=== PATIENT | female | born 1930 | race Caucasian/White ===

== ENCOUNTER 2018-10-16 12:53 | Observation (INO) | payer BC ==
[2018-10-16 13:35] VITALS: BMI 25.6
--- NOTE | 2018-10-16 15:13 | PDOC ---
History of Present Illness - General Chief Complaint: Injury Stated Complaint: FALL Time Seen by Provider: 10/16/18 13:56 - History of Present Illness Initial Comments: 10/16/18 18:28 The patient is an 87 year old female with a PMH of CAD s/p stent, hld, htn, dm, sarcoidosis, left hip fx, osteoarthritis who presents to the ER s/p syncopal episode at 11:45AM today. Patient states the prior to the sycopal episode she began to experience darkening of her vision. Patient states she hit her head against a doorframe on her way down. She admits to loss of consciousness for a few seconds but the head strike woke her up. Patient notes she also hit her R elbow on the way down, but denies any pain now. Patient admits to mild head pain. Patient notes she had chest pain that was sharp and substernal yesterday for a few seconds but denies any chest pain or palpiations prior to the syncopal episode. Patient reports she is unsteady when she walks at baseline and uses her walker intermittently. Patient states she was able to ambulate after the fall, called her son who subsequently called EMS to bring her to the ER. Currently taking aspirin but denies using any other blood thinners. Denies recent illnesses. The patient denies chest pain, shortness of breath, headache and dizziness. Denies fever, chills, nausea, vomit, diarrhea and constipation. Denies dysuria, frequency, urgency and hematuria. Allergies: NKA Past surgical history: None reported Social history: No reported alcohol, drug or cigarette use. Past History - Past Medical History Allergies/Adverse Reactions: Allergies Allergy/AdvReac Type Severity Reaction Status Date / Time codeine AdvReac Verified 10/16/18 13:22 Home Medications: Ambulatory Orders Alprazolam 0.25 mg PO PRN 10/16/18 Aspirin [Aspirin EC] 81 mg PO DAILY 10/16/18 Atorvastatin Calcium 10 mg PO WEEKLY 10/16/18 Vahe/D3/Mag11/Zinc/Field Hauler/Harpreet/Bor [Caltrate 600+D Plus Tablet] 1 each PO DAILY 04/28 Cholecalciferol (Vitamin D3) [D-2000] 2,000 unit PO DAILY 10/16/18 Diltiazem Cd [Cardizem Cd -] 120 mg PO DAILY 10/16/18 Losartan Potassium 25 mg PO DAILY 10/16/18 Meloxicam 7.5 mg PO DAILY 10/16/18 Metoprolol Succinate 25 mg PO DAILY 10/16/18 Pantoprazole Sodium 40 mg PO PRN 10/16/18 Vitamin B Complex [B Complex] 1 tab PO DAILY 10/16/18 COPD: No HTN: Yes Hypercholesterolemia: Yes - Surgical History Appendectomy: Yes Cardiac Surgery: Yes - Immunization History Immunization Up to Date: Yes - Suicide/Smoking/Psychosocial Hx Smoking History: Never smoked Hx Alcohol Use: No Drug/Substance Use Hx: No Review of Systems - Review of Systems Comments:: 10/16/18 18:30 GENERAL/CONSTITUTIONAL: No fever or chills. No weakness. +fall HEAD, EYES, EARS, NOSE AND THROAT: No change in vision. No ear pain or discharge. No sore throat. GASTROINTESTINAL: No nausea, vomiting, diarrhea or constipation. GENITOURINARY: No dysuria, frequency, or change in urination. CARDIOVASCULAR: +chest pain, no shortness of breath. RESPIRATORY: No cough, wheezing, or hemoptysis. MUSCULOSKELETAL: No joint or muscle swelling or pain. No neck or back pain. SKIN: No rash NEUROLOGIC: No vertigo, or change in strength/sensation. +head strike, +LOC ENDOCRINE: No increased thirst. No abnormal weight change. HEMATOLOGIC/LYMPHATIC: No anemia, easy bleeding, or history of blood clots. ALLERGIC/IMMUNOLOGIC: No hives or skin allergy. *Physical Exam - Vital Signs Last Vital Signs Temp Pulse Resp BP Pulse Ox 98.7 F 66 18 155/54 L 97 10/16/18 13:31 10/16/18 13:31 10/16/18 13:31 10/16/18 13:31 10/16/18 13:31 - Physical Exam Comments: 10/16/18 18:31 GENERAL: Awake, alert, and fully oriented, in no acute distress HEAD: No signs of trauma EYES: PERRLA, EOMI, sclera anicteric, conjunctiva clear ENT: Oropharynx clear without exudates. Moist mucosa NECK: Normal ROM, supple, no lymphadenopathy, JVD, or masses LUNGS: Breath sounds equal, clear to auscultation bilaterally. No wheezes, and no crackles HEART: Regular rate and rhythm, normal S1 and S2, no murmurs, rubs or gallops ABDOMEN: Soft, nontender, normoactive bowel sounds. No guarding, no rebound. No masses EXTREMITIES: Normal range of motion, no edema. No cords, erythema, or tenderness BACK: No midline spinal tenderness in cervical/thoracic/lumbar region NEUROLOGICAL: Normal speech, cranial nerves intact, equal strength and sensation b/l SKIN: Warm, Dry, normal turgor, no rashes or lesions noted. Moderate Sedation - Procedure Monitoring Vital Signs: Procedure Monitoring Vital Signs Temperature 98.7 F 10/16/18 13:31 Pulse Rate 66 10/16/18 13:31 Respiratory Rate 18 10/16/18 13:31 Blood Pressure 155/54 L 10/16/18 13:31 O2 Sat by Pulse Oximetry (%) 97 10/16/18 13:31 Heart Score/ECG Review #1 10/16/18 18:31 EKG read and interpreted by me. NSR, rate 63. LAD. LBBB. When compared to EKG from 12/04/2009, no sig change ED Treatment Course - LABORATORY CBC & Chemistry Diagram: 10/16/18 15:16 10/16/18 15:16 - RADIOLOGY Radiology Studies Ordered: Category Date Time Status CERVICAL SPINE CT W/O CONTR [CT] Stat CT Scan 10/16/18 15:[address] WITHOUT CONTRAST [CT] Stat CT Scan 10/16/18 15:00 Ordered CHEST X-RAY PORTABLE* [RAD] Stat Radiology 10/16/18 15:02 Ordered PELVIS [RAD] Stat Radiology 10/16/18 15:04 Ordered Medical Decision Making - Medical Decision Making 10/16/18 17:48 87yo F with MMP including CAD presents to the ED with syncopal episode. Trauma w /u thus far neg. Labs including trop wnl. EKG unchanged. Concern for cardiac arrhythmia, pt admitted to tele obs for cardiac monitoring. *DC/Admit/Observation/Transfer Diagnosis at time of Disposition: Syncope and collapse, Head injury, Fall - Discharge Dispostion Condition at time of disposition: Stable Decision to Admit order: Yes - Referrals - Patient Instructions - Post Discharge Activity - Attestations Physician Attestion: 10/16/18 18:36 I, Dr. Roxana Enriquez MD, attest that this document has been prepared under my direction and personally reviewed by me in its entirety. I further attest, that it accurately reflects all work, treatment, procedures and medical decision -making performed by me.
[2018-10-16 15:33] LABS: HEMATOCRIT 37.9 % (32.4-45.2); HEMOGLOBIN 13.4 GM/dL (10.7-15.3); MCH 32.3 pg (25.7-33.7); MCHC 35.5 g/dl (32.0-36.0); MEAN CELL VOLUME 91.1 fl (80-96); MEAN PLT VOLUME 8.6 fl (7.5-11.1); PLATELET COUNT 122 K/MM3 (134-434); RBC 4.16 M/mm3 (3.60-5.2); RDW 13.3 % (11.6-15.6); WHITE BLOOD COUNT 6.8 K/mm3 (4.0-10.0)
[2018-10-16 16:11] LABS: ALBUMIN 3.9 g/dl (3.4-5.0); ALK PHOS 101 U/L (45-117); ANION GAP 4 MMOL/L (8-16); BILIRUBIN,TOTAL 0.7 mg/dL (0.2-1); BLOOD UREA NITROGEN 23 mg/dL (7-18); CHLORIDE 111 mmol/L (98-107); CO2 28 mmol/L (21-32); GLUCOSE,RANDOM 97 mg/dL (74-106); POTASSIUM 4.5 mmol/L (3.5-5.1); SGOT/AST 18 U/L (15-37); SGPT/ALT 18 U/L (13-61); SODIUM 143 mmol/L (136-145); TOT PROT 6.9 g/dl (6.4-8.2)
[2018-10-16 16:45] LABS: INR 1.12 (0.83-1.09); PROTHROMBIN TIME (PATIENT) 13.2 SEC (9.7-13.0)
[2018-10-16 16:48] LABS: ACTIVATED PTT 28.2 SECONDS (25.2-36.5)
[2018-10-16 17:16] LABS: URINE APPEARANCE CLEAR; URINE BILIRUBIN NEGATIVE (<2.0 mg/dL); URINE COLOR STRAW; URINE GLUCOSE (UA) NEGATIVE (NEGATIVE); URINE KETONE NEGATIVE (NEGATIVE); URINE LEUK ESTERASE NEGATIVE (NEGATIVE); URINE NITRITE NEGATIVE (NEGATIVE); URINE PROTEIN NEGATIVE (NEGATIVE); URINE UROBILINOGEN NEGATIVE mg/dL (0.2-1.0)
[2018-10-16] MEDS ORDERED: SODIUM CHLORIDE 1,000 ML IV SCH (18:00)
--- NOTE | 2018-10-16 18:21 | HP ---
CHIEF COMPLAINT: syncope PCP:dr. carranza, cardio: dr. olivo HISTORY OF PRESENT ILLNESS: 87 y/o female with PMH of HTN, HLD, CAD (s/p stent of LAD in 2012), sarcoid presents to the ED after almost passing out at home. Patient states she was going to put something away in the kitchen and she felt as if she was going to pass out so she held on to the chair while banging her forehead on the side- she did not lose consciousness and she was able to pick herself up a few minutes later to call her son who called EMS. of note, patient had a similar episode around 6 months ago where was going to take out the garbage felt as if she was going to pass out but didnt. Patient states she suffers from chronic lightheadedness and there are times where she needs to hold on to something to prevent her from falling. she denies any recent illnesses however she states that two nights ago she had a twing of chest pain that lasted 2 seconds and has not had any since then. she said her last stress test was about 3-4 years ago and cannot recall the last time she had an echo ER course was notable for: (1)vitals wnl, labs wnl (2)ekg: LBB (not new) qtc 427 (3) Recent Travel: denies PAST MEDICAL HISTORY: sere above PAST SURGICAL HISTORY: stent; hip replacement 17 years ago, left lower lobe resection for sarcoid 1985 Social History: Smoking:denies Alcohol:social Drugs: denies Family History:noncontributory Allergies codeine Adverse Reaction (Verified 10/16/18 13:22) HOME MEDICATIONS: Home Medications Medication Instructions Recorded Alprazolam 0.25 mg PO PRN 10/16/18 Aspirin [Aspirin EC] 81 mg PO DAILY 10/16/18 Atorvastatin Calcium 10 mg PO WEEKLY 10/16/18 Vahe/D3/Mag11/Zinc/Licensed Massage Practitioner/Harpreet/Bor 1 each PO DAILY 10/16/18 [Caltrate 600+D Plus Tablet] Cholecalciferol (Vitamin D3) 2,000 unit PO DAILY 10/16/18 [D-2000] Diltiazem Cd [Cardizem Cd -] 120 mg PO DAILY 10/16/18 Losartan Potassium 25 mg PO DAILY 10/16/18 Meloxicam 7.5 mg PO DAILY 10/16/18 Metoprolol Succinate 25 mg PO DAILY 10/16/18 Pantoprazole Sodium 40 mg PO PRN 10/16/18 Vitamin B Complex [B Complex] 1 tab PO DAILY 10/16/18 REVIEW OF SYSTEMS CONSTITUTIONAL: Absent: fever, chills, diaphoresis, generalized weakness, malaise, loss of appetite, weight change HEENT: Absent: rhinorrhea, nasal congestion, throat pain, throat swelling, difficulty swallowing, mouth swelling, ear pain, eye pain, visual changes CARDIOVASCULAR: Present: lightheadedness,Absent: chest pain, syncope, palpitations, irregular heart rate, peripheral edema RESPIRATORY: Absent: cough, shortness of breath, dyspnea with exertion, orthopnea, wheezing, stridor, hemoptysis GASTROINTESTINAL: Absent: abdominal pain, abdominal distension, nausea, vomiting, diarrhea, constipation, melena, hematochezia GENITOURINARY: Absent: dysuria, frequency, urgency, hesitancy, hematuria, flank pain, genital pain MUSCULOSKELETAL: Absent: myalgia, arthralgia, joint swelling, back pain, neck pain SKIN: Absent: rash, itching, pallor HEMATOLOGIC/IMMUNOLOGIC: Absent: easy bleeding, easy bruising, lymphadenopathy, frequent infections ENDOCRINE: Absent: unexplained weight gain, unexplained weight loss, heat intolerance, cold intolerance NEUROLOGIC: Absent: headache, focal weakness or paresthesias, dizziness, unsteady gait, seizure, mental status changes, bladder or bowel incontinence PSYCHIATRIC: Absent: anxiety, depression, suicidal or homicidal ideation, hallucinations. PHYSICAL EXAMINATION Vital Signs - 24 hr 10/16/18 13:31 Temperature 98.7 F Pulse Rate 66 Respiratory 18 Rate Blood Pressure 155/54 L O2 Sat by Pulse 97 Oximetry (%) GENERAL: Awake, alert, and fully oriented, in no acute distress. EYES: EOMI; PEERLA; no scleral icterus NECK: no JVD; no lymphadenopathy LUNGS: CTA B/L; no rales, rhonchi or wheezig HEART: Regular rate and rhythm, normal S1 and S2 without murmur, rub or gallop. ABDOMEN: soft; non-tender; non-distended +BS in all 4 quadrants MUSCULOSKELETAL: Normal range of motion at all joints. No bony deformities or tenderness. No CVA tenderness. EXTREMITIES: warm; well-perfused; no clubbing/cyanosis or edema NEUROLOGICAL: Cranial nerves II-XII intact. Normal speech. sensation intact B/L ; 4/5 strength B/L UE; 3/5 LLE; 4/5 RLE PSYCHIATRIC: Cooperative. Good eye contact. Appropriate mood and affect. SKIN: Warm, dry, normal turgor, no rashes or lesions noted, normal capillary refill. Laboratory Results - last 24 hr 10/16/18 10/16/18 10/16/18 15:16 15:16 15:16 WBC 6.8 RBC 4.16 Hgb 13.4 Hct 37.9 MCV 91.1 MCH 32.3 MCHC 35.5 RDW 13.3 Plt Count 122 L MPV 8.6 Absolute Neuts (auto) 1.7 Neutrophils % No Result Required. Lymphocytes % No Result Required. Nucleated RBC % 0 PT with INR 13.20 H INR 1.12 H PTT (Actin FS) 28.2 Sodium 143 Potassium 4.5 Chloride 111 H Carbon Dioxide 28 Anion Gap 4 L BUN 23 H Creatinine 1.0 Creat Clearance w eGFR 52.69 Random Glucose 97 Calcium 9.0 Magnesium Total Bilirubin 0.7 AST 18 ALT 18 Alkaline Phosphatase 101 Troponin I Total Protein 6.9 Albumin 3.9 Urine Color Urine Appearance Urine pH Ur Specific [place] Urine Protein Urine Glucose (UA) Urine Ketones Urine Blood Urine Nitrite Urine Bilirubin Urine Urobilinogen Ur Leukocyte Esterase 10/16/18 10/16/18 15:16 15:40 WBC RBC Hgb Hct MCV MCH MCHC RDW Plt Count MPV Absolute Neuts (auto) Neutrophils % Lymphocytes % Nucleated RBC % PT with INR INR PTT (Actin FS) Sodium Potassium Chloride Carbon Dioxide Anion Gap BUN Creatinine Creat Clearance w eGFR Random Glucose Calcium Magnesium 2.0 Total Bilirubin AST ALT Alkaline Phosphatase Troponin I 0.02 Total Protein Albumin Urine Color Straw Urine Appearance Clear Urine pH 5.0 Ur Specific [place] 1.005 L Urine Protein Negative Urine Glucose (UA) Negative Urine Ketones Negative Urine Blood 1+ H Urine Nitrite Negative Urine Bilirubin Negative Urine Urobilinogen Negative Ur Leukocyte Esterase Negative ASSESSMENT/PLAN: 87 y/o female with PMH of HTN, HLD, CAD (s/p stent in 2012), sarcoid, presented to the ED after having a pre-syncopal episode at home #Pre-syncope likely 2/2 dehydration/ volume depletion -head CT negative -orthostatic negative -tele monitoring -NS @75mls/hr -echo can be do as outpatient -monitor vitals/hemodynamics #HTN -c/w home meds: cozaar 25 daily metoprolol succinate 25 daily cardizem 120 daily *if BP becomes marginal will hold #CAD -c/w ASA 81 daily #HLD -patient takes lipitor 10mg three times per week F/E/N NS @75mls/hr monitor electrolytes sodium-controlled diet DVT PPX: lovenox dispo: tele-obs Problem List - Problem (1) HTN (hypertension) Code(s): I10 - ESSENTIAL (PRIMARY) HYPERTENSION (2) CAD (coronary artery disease) Code(s): I25.10 - ATHSCL HEART DISEASE OF [place] CORONARY ARTERY W/O ANG PCTRS (3) HLD (hyperlipidemia) Code(s): E78.5 - HYPERLIPIDEMIA, UNSPECIFIED (4) Pre-syncope Code(s): R55 - SYNCOPE AND COLLAPSE Visit type - Emergency Visit Emergency Visit: Yes Care time: The patient presented to the Emergency Department on the above date and was hospitalized for further evaluation of their emergent condition. - New Patient This patient is new to me today: Yes Date on this admission: 10/16/18 - Critical Care Critical Care patient: No
[2018-10-16] MEDS ORDERED: ENOXAPARIN NA (PORCINE) 40 MG/0.4 ML DISP.SYRIN SQ ONE ×2 (18:35→18:42)
[2018-10-16] MEDS: ENOXAPARIN NA (PORCINE) 40 MG/0.4 ML DISP.SYRIN SQ SCH (18:42)
--- NOTE | 2018-10-16 18:43 | PN ---
Teaching Attending Note Name of Resident: Shaneka De La Rosa ATTENDING PHYSICIAN STATEMENT I saw and evaluated the patient. I reviewed the resident's note and discussed the case with the resident. I agree with the resident's findings and plan as documented. SUBJECTIVE: CC: near syncope HPI : 87 y/o lady with h/o CAD, s/p MS, s/p PCI, HLP, anxiety, HTN, and sarcoidosis,s/p LLL resection , who presented with a near syncopal episode. at home while walking, she felt light headed and like she was going to faint and she held onto objexts and brought herself down and sat on the steps. during the whole process she banged her head against an object in her kitchen. she does not think she lost consciousness. She denies any CP, SOB, palpitations, sweating, or ARREOLA before or after the incident. she reports similar episode 2 months ago, while standing in her garage. she reports poor fluid intake and drinks only when she has to take her medications. 2 nights ago, she had sharp pain in L chest that lasted only 2 seconds and felt like a pin in her chest. she reports feeling light headed occasionally, especially when she gets up form sitting position. OBJECTIVE: NAD , AAOx3. no facial droop. EOMI, round equal pupils, reactive to light. dry lips. CV: RRR, no MRG, no carotid bruits Lungs: L base course breath sounds , to a lesser extent on R base too EXT: no edema or erythema, DP 2+ . no fungal infection among toes. callus on plantar surface of the 1st metatarsal head on each foot Neuro: no facial droop. EOMI, round equal pupils, reactive to light. tongue at mid line. Nl facialsensation . strength 5/5 in upper and lower extrenities proximally and distally. sensation to light touch NL. Imaging: CT head, C spine report reviewed. pelvis xray image reviewed. no fx sen. report to follow EKG: LBBB, L axis . no ST , TW changes ASSESSMENT AND PLAN: 87 y/o lady with h/o CAD, s/p MS, s/p PCI, HLP,anxiety, HTN, and sarcoidosis,s /p LLL resection , who presented with a near syncopal episode 1- Near syncope: likely due to orthostatic hypotension form volume depletion . ( from hx and elevated BUN/Cr). can't r/o arrhythmias completely. but do not suspect stroke/TIA, or MS. seizure is not suspected. - start IVF - carotid US - tele - might need prolonged cardiac monitoring after dc if we can't find an etiology - need a non urgent Echo, can be done as out pt. She follows with Dr. Baptiste at [facility] 2- HTN: cont metorpolol, cardizem and losartan 3- H/o CAD: cont ASA, statin, BB, ARB 4- DVT px PT eval
[2018-10-16 18:44] LABS: EPI CELLS RARE /HPF (FEW); URINE HYALINE CAST 2 /lpf
[2018-10-16 19:41] LABS: ANISOCYTOSIS 0; MACROCYTOSIS 0; PLATELET ESTIMATE DECREASED
[2018-10-16] MEDS ORDERED: ATORVASTATIN CA 10 MG TABLET (FP) PO SCH (22:00)
[2018-10-16] MEDS ORDERED: ATORVASTATIN CA 10 MG TABLET (FP) ONE (22:25)
[2018-10-17 07:31] LABS: ALBUMIN 3.2 g/dl (3.4-5.0); ALK PHOS 92 U/L (45-117); ANION GAP 5 MMOL/L (8-16); BILIRUBIN,TOTAL 0.9 mg/dL (0.2-1); BLOOD UREA NITROGEN 22 mg/dL (7-18); CALCIUM 8.7 mg/dL (8.5-10.1); CHLORIDE 110 mmol/L (98-107); CO2 25 mmol/L (21-32); CREATININE 0.9 mg/dL (0.55-1.3); GLUCOSE,RANDOM 104 mg/dL (74-106); MAGNESIUM 2.1 mg/dL (1.8-2.4); PHOSPHOROUS 3.1 mg/dL (2.5-4.9); POTASSIUM 4.1 mmol/L (3.5-5.1); SGOT/AST 36 U/L (15-37); SGPT/ALT 16 U/L (13-61); SODIUM 141 mmol/L (136-145); TOT PROT 6.1 g/dl (6.4-8.2)
[2018-10-17] MEDS ORDERED: metoPROLOL SUCCINATE 25 MG TAB.SR.24H (FP) PO SCH (10:00)
[2018-10-17] MEDS ORDERED: VITAMIN B COMPLEX W/C COMBO TABLET (FP) PO SCH (10:00)
[2018-10-17] MEDS ORDERED: ASPIRIN COATED 81 MG TABLET.EC PO SCH (10:00)
[2018-10-17] MEDS ORDERED: LOSARTAN POTASSIUM 25 MG TABLET PO SCH (10:00)
[2018-10-17] MEDS ORDERED: PATIENT'S OWN MEDICATION (NON-FORMULARY) (Meloxicam [Meloxicam] 7.5 MG) PO SCH (10:00)
[2018-10-17] MEDS: ENOXAPARIN NA (PORCINE) 40 MG/0.4 ML DISP.SYRIN SQ SCH (10:01)
--- NOTE | 2018-10-17 10:28 | DS ---
Physical Examination Vital Signs: Vital Signs Temperature 98.3 F 10/17/18 10:27 Pulse Rate 62 10/17/18 10:27 Respiratory Rate 18 10/17/18 10:27 Blood Pressure 128/57 L 10/17/18 10:27 O2 Sat by Pulse Oximetry (%) 100 10/17/18 10:27 Labs: CBC, BMP 10/17/18 06:30 10/17/18 06:30 Discharge Summary Reason For Visit: SYNCOPE AND COLLAPSE Current Active Problems Pre-syncope (Acute) Condition: Improved - Instructions Diet, Activity, Other Instructions: you were admitted for near syncope. You were dehydrated and needed so me fluids please make sure you drink plenty of fluids please follow up with your compensation manager as you will need repeat Echo of your heart and might need prolonged cardiac monitoring follow with your primary care doctor in 1 week Referrals: Yovani Baptiste MD [Non Staff, Medical] - Disposition: HOME - Home Medications Comprehensive Discharge Medication List: Ambulatory Orders Alprazolam 0.25 mg PO PRN 10/16/18 Aspirin [Aspirin EC] 81 mg PO DAILY 10/16/18 Atorvastatin Calcium 10 mg PO WEEKLY 10/16/18 Vahe/D3/Mag11/Zinc/Director Of Leadership Development/Harpreet/Bor [Caltrate 600+D Plus Tablet] 1 each PO DAILY 04/28 Cholecalciferol (Vitamin D3) [D3-2000] 2,000 unit PO DAILY 10/16/18 Diltiazem Cd [Cardizem Cd -] 120 mg PO DAILY 10/16/18 Losartan Potassium 25 mg PO DAILY 10/16/18 Meloxicam 7.5 mg PO DAILY 10/16/18 Metoprolol Succinate 25 mg PO DAILY 10/16/18 Pantoprazole Sodium 40 mg PO PRN 10/16/18 Vitamin B Complex [B Complex] 1 tab PO DAILY 10/16/18
--- NOTE | 2018-10-17 11:51 | EKG ---
Test Reason : Blood Pressure : / mmHG Vent. Rate : 068 BPM Atrial Rate : 068 BPM P-R Int : 202 ms QRS Dur : 120 ms QT Int : 410 ms P-R-T Axes : 060 -32 076 degrees QTc Int : 435 ms NORMAL SINUS RHYTHM LEFT AXIS DEVIATION INFERIOR INFARCT , AGE UNDETERMINED ANTEROSEPTAL INFARCT , AGE UNDETERMINED ABNORMAL ECG WHEN COMPARED WITH ECG OF 04-DEC-2009 12:29, LEFT BUNDLE BRANCH BLOCK IS NO LONGER PRESENT ANTEROSEPTAL INFARCT IS NOW PRESENT INFERIOR INFARCT IS NOW PRESENT Confirmed by CRISTOBAL MOHAN MD ([id number]) on 10/17/2018 11:50:48 AM Referred By: Confirmed By:CRISTOBAL MOHAN MD
[2018-10-17 13:45] VITALS: BP 134/55; PULSE 78; TEMP 98
--- NOTE | 2018-10-17 16:48 | PN ---
Progress Note (short form) - Note Progress Note: Subjective: no pain , no ARREOLA , no fever or chills Objective: Vital Signs: Last Vital Signs Temp Pulse Resp BP Pulse Ox 98.0 F 78 18 134/55 L 99 10/17/18 13:44 10/17/18 13:44 10/17/18 13:44 10/17/18 13:44 10/17/18 13:44 Laboratory Results - last 24 hr 10/16/18 10/16/18 10/16/18 15:16 15:16 15:16 WBC 6.8 Corrected WBC (auto) RBC 4.16 Hgb 13.4 Hct 37.9 MCV 91.1 MCH 32.3 MCHC 35.5 RDW 13.3 Plt Count 122 L MPV 8.6 Absolute Neuts (auto) 1.7 Neutrophils % No Result Required. Neutrophils % (Manual) 85.9 H Band Neutrophils % 0.0 Lymphocytes % No Result Required. Lymphocytes % (Manual) 5.0 L Monocytes % Monocytes % (Manual) 5 Eosinophils % Eosinophils % (Manual) 0.0 Basophils % Basophils % (Manual) 0.0 Myelocytes % (Man) 1 Promyelocytes % (Man) 0 Blast Cells % (Manual) 0 Nucleated RBC % 0 Metamyelocytes 0 Hypochromia 0 Platelet Estimate Decreased Platelet Comment Polychromasia 0 Poikilocytosis 0 Anisocytosis 0 Microcytosis 0 Macrocytosis 0 PT with INR 13.20 H INR 1.12 H PTT (Actin FS) 28.2 Sodium 143 Potassium 4.5 Chloride 111 H Carbon Dioxide 28 Anion Gap 4 L BUN 23 H Creatinine 1.0 Creat Clearance w eGFR 52.69 Random Glucose 97 Calcium 9.0 Phosphorus Magnesium Total Bilirubin 0.7 AST 18 ALT 18 Alkaline Phosphatase 101 Troponin I Total Protein 6.9 Albumin 3.9 Urine Color Urine Appearance Urine pH Ur Specific [place] Urine Protein Urine Glucose (UA) Urine Ketones Urine Blood Urine Nitrite Urine Bilirubin Urine Urobilinogen Ur Leukocyte Esterase Urine WBC (Auto) Urine RBC (Auto) Ur Epithelial Cells Hyaline Casts Blood Type Antibody Screen 10/16/18 10/16/18 10/16/18 15:16 15:16 15:40 WBC Corrected WBC (auto) RBC Hgb Hct MCV MCH MCHC RDW Plt Count MPV Absolute Neuts (auto) Neutrophils % Neutrophils % (Manual) Band Neutrophils % Lymphocytes % Lymphocytes % (Manual) Monocytes % Monocytes % (Manual) Eosinophils % Eosinophils % (Manual) Basophils % Basophils % (Manual) Myelocytes % (Man) Promyelocytes % (Man) Blast Cells % (Manual) Nucleated RBC % Metamyelocytes Hypochromia Platelet Estimate Platelet Comment Polychromasia Poikilocytosis Anisocytosis Microcytosis Macrocytosis PT with INR INR PTT (Actin FS) Sodium Potassium Chloride Carbon Dioxide Anion Gap BUN Creatinine Creat Clearance w eGFR Random Glucose Calcium Phosphorus Magnesium 2.0 Total Bilirubin AST ALT Alkaline Phosphatase Troponin I 0.02 Total Protein Albumin Urine Color Straw Urine Appearance Clear Urine pH 5.0 Ur Specific [place] 1.005 L Urine Protein Negative Urine Glucose (UA) Negative Urine Ketones Negative Urine Blood 1+ H Urine Nitrite Negative Urine Bilirubin Negative Urine Urobilinogen Negative Ur Leukocyte Esterase Negative Urine WBC (Auto) <1 Urine RBC (Auto) 20 Ur Epithelial Cells Rare Hyaline Casts 2 Blood Type O POSITIVE Antibody Screen Negative 10/16/18 10/17/18 10/17/18 20:58 06:30 06:30 WBC Cancelled Corrected WBC (auto) Cancelled RBC Cancelled Hgb Cancelled Hct Cancelled MCV Cancelled MCH Cancelled MCHC Cancelled RDW Cancelled Plt Count Cancelled MPV Cancelled Absolute Neuts (auto) Cancelled Neutrophils % Cancelled Neutrophils % (Manual) Band Neutrophils % Lymphocytes % Cancelled Lymphocytes % (Manual) Monocytes % Cancelled Monocytes % (Manual) Eosinophils % Cancelled Eosinophils % (Manual) Basophils % Cancelled Basophils % (Manual) Myelocytes % (Man) Promyelocytes % (Man) Blast Cells % (Manual) Nucleated RBC % Cancelled Metamyelocytes Hypochromia Platelet Estimate Cancelled Platelet Comment Cancelled Polychromasia Poikilocytosis Anisocytosis Microcytosis Macrocytosis PT with INR INR PTT (Actin FS) Sodium 141 Potassium 4.1 Chloride 110 H Carbon Dioxide 25 Anion Gap 5 L BUN 22 H Creatinine 0.9 Creat Clearance w eGFR 59.51 Random Glucose 104 Calcium 8.7 Phosphorus 3.1 Magnesium 2.1 Total Bilirubin 0.9 AST 36 ALT 16 Alkaline Phosphatase 92 Troponin I Total Protein 6.1 L Albumin 3.2 L Urine Color Urine Appearance Urine pH Ur Specific [place] Urine Protein Urine Glucose (UA) Urine Ketones Urine Blood Urine Nitrite Urine Bilirubin Urine Urobilinogen Ur Leukocyte Esterase Urine WBC (Auto) Urine RBC (Auto) Ur Epithelial Cells Hyaline Casts Blood Type O POSITIVE Antibody Screen Physical Exam: NAD, AAOx3. no facial droop. EOMI, CV: RRR, no MRG Lungs: L base course breath sounds , to a lesser extent on R base too EXT: no edema or erythema, DP 2+ . Imaging:CUS reviewed. hip xray reviewed ASSESSMENT AND PLAN: 87 y/o lady with h/o CAD, s/p [place], s/p PCI, HLP,anxiety, HTN, and sarcoidosis,s /p LLL resection , who presented with a near syncopal episode 1- Near syncope: likely due to orthostatic hypotension form volume depletion - tele with no events - dc IVf - carotid US reviewed, with no significant stenosis - f/u with her mid wife for echo and possible prolonged monitoring . she and her son were informed that yesterday 2- HTN: cont metorpolol, cardizem and losartan 3- H/o CAD: cont ASA, statin, BB, ARB seen by PT. dc home today Visit type - Emergency Visit Emergency Visit: Yes ED Registration Date: 10/16/18 Care time: The patient presented to the Emergency Department on the above date and was hospitalized for further evaluation of their emergent condition. - New Patient This patient is new to me today: No - Critical Care Critical Care patient: No
--- NOTE | 2018-10-19 16:17 | DS ---
Physical Exam: SUBJECTIVE: Patient seen and examined OBJECTIVE: PHYSICAL EXAM GENERAL: The patient is awake, alert, and fully oriented, in no acute distress. HEAD: Normal with no signs of trauma. EYES: PERRL, extraocular movements intact, sclera anicteric, conjunctiva clear. ENT: Ears normal, nares patent, oropharynx clear without exudates, moist mucous membranes. NECK: Trachea midline, full range of motion, supple. LUNGS: Breath sounds equal, clear to auscultation bilaterally, no wheezes, no crackles, no accessory muscle use. HEART: Regular rate and rhythm, S1, S2 without murmur, rub or gallop. ABDOMEN: Soft, nontender, nondistended, normoactive bowel sounds, no guarding, no rebound, no hepatosplenomegaly, no masses. EXTREMITIES: 2+ pulses, warm, well-perfused, no edema. NEUROLOGICAL: Cranial nerves II through XII grossly intact. Normal speech, gait not observed. PSYCH: Normal mood, normal affect. SKIN: Warm, dry, normal turgor, no rashes or lesions noted. LABS HOSPITAL COURSE: Date of Admission:10/16/18 87 y/o female with PMH of CAD, NH (s/p CABG), HLD< anxiety , sarcoidosis presented to the ED after having a near syncopal episode at home. patient came in because she had almost passed out at home; she felt like she wasoing to fll when she was getting something from the kitchen so she cauht herself, held onto the chair,to prevent her from falling she had a similar episodes like this a few months ago at home. she ws orthostatic positive when she arrived everything else was wnl. head CT was negative carotid dopplers showed no significnt stenosis. she was hydrated and d/c home with cardio follow up to get a repeat echo Date of Discharge: 10/19/18 Imaging:CUS reviewed. hip xray reviewed Minutes to complete discharge: 39 Discharge Summary Reason For Visit: SYNCOPE AND COLLAPSE Condition: Improved - Instructions Diet, Activity, Other Instructions: you were admitted for near syncope. 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 as you will need repeat Echo of your heart and might need prolonged cardiac monitoring follow with your primary care doctor in 1 week Referrals: Yovani Baptiste MD [Non Staff, Medical] - Bolivar Richards MD [Primary Care Provider] - 1 Week Disposition: VNS/HOME HEALTH CARE - Home Medications Comprehensive Discharge Medication List: Ambulatory Orders Alprazolam 0.25 mg PO PRN 10/16/18 Aspirin [Aspirin EC] 81 mg PO DAILY 10/16/18 Atorvastatin Calcium 10 mg PO WEEKLY 10/16/18 Vahe/D3/Mag11/Zinc/Clinical Esthetician/Harpreet/Bor [Caltrate 600+D Plus Tablet] 1 each PO DAILY 04/28 Cholecalciferol (Vitamin D3) [D3-2000] 2,000 unit PO DAILY 10/16/18 Diltiazem Cd [Cardizem Cd -] 120 mg PO DAILY 10/16/18 Losartan Potassium 25 mg PO DAILY 10/16/18 Meloxicam 7.5 mg PO DAILY 10/16/18 Metoprolol Succinate 25 mg PO DAILY 10/16/18 Pantoprazole Sodium 40 mg PO PRN 10/16/18 Vitamin B Complex [B Complex] 1 tab PO DAILY 10/16/18 Problem List - Problems (1) HTN (hypertension) Code(s): I10 - ESSENTIAL (PRIMARY) HYPERTENSION (2) CAD (coronary artery disease) Code(s): I25.10 - ATHSCL HEART DISEASE OF [place] CORONARY ARTERY W/O ANG PCTRS (3) HLD (hyperlipidemia) Code(s): E78.5 - HYPERLIPIDEMIA, UNSPECIFIED (4) Pre-syncope Code(s): R55 - SYNCOPE AND COLLAPSE This patient is new to me today: No Emergency Visit: Yes ED Registration Date: 10/16/18 Care time: The patient presented to the Emergency Department on the above date and was hospitalized for further evaluation of their emergent condition. Critical Care patient: No - Discharge Referral Referred to [facility] Med [facility].C.: No
== END 2018-10-17 13:53 | disposition home health service (06) ==
LOC: JER 12:53 → JERBED 16:35
PROVIDERS: ADMIT Internal Medicine; ATTEND Internal Medicine
PROC: 3E0337Z Introduction of Electrolytic and Water Balance Substance into Peripheral Vein, Percutaneous Approach (ICD-10-PCS; principal; 2018-10-16)
PROC: 3E013GC Introduction of Other Therapeutic Substance into Subcutaneous Tissue, Percutaneous Approach (ICD-10-PCS; 2018-10-16)
DX: R55 Syncope and collapse (principal); S09.90XA Unspecified injury of head, initial encounter; I10 Essential (primary) hypertension; E78.5 Hyperlipidemia, unspecified; E11.9 Type 2 diabetes mellitus without complications; M19.90 Unspecified osteoarthritis, unspecified site; I25.10 Atherosclerotic heart disease of native coronary artery without angina pectoris; D86.9 Sarcoidosis, unspecified; Z79.82 Long term (current) use of aspirin; Z95.5 Presence of coronary angioplasty implant and graft; Z88.5 Allergy status to narcotic agent; W18.39XA Other fall on same level, initial encounter; Z91.81 History of falling; Y93.89 Activity, other specified; Y92.89 Other specified places as the place of occurrence of the external cause
CPT/HCPCS: 36415; 70450-TC; 71045-TC-FY; 72125-TC; 72170-TC-FY; 80053; 81003; 81015; 83735; 84100; 84484; 85025; 85610; 85730; 86850; 86900; 86901; 87077; 87086; 93005; 93010; 93880-TC; 96372; 97161-GP; 99285-25; G0378; J7030

== ENCOUNTER 2019-06-22 04:42 | Inpatient (IN) | payer BC ==
--- NOTE | 2019-06-22 05:19 | PDOC ---
Attending Attestation - Resident Resident Name: Sheeba Velasco - ED Attending Attestation I have performed the following: I have examined & evaluated the patient, The case was reviewed & discussed with the resident, I agree w/resident's findings & plan - HPI HPI: 06/25/19 20:23 see resident hpi - Physicial Exam PE: 06/25/19 20:24 agree with resident exam - Medical Decision Making 06/25/19 20:24 88-year-old female status post fall with leg weakness Case signed out to dayshift with imaging pending for further evaluation
--- NOTE | 2019-06-22 05:28 | PDOC ---
History of Present Illness - General Stated Complaint: FALL Time Seen by Provider: 06/22/19 05:16 - History of Present Illness Initial Comments: 06/22/19 05:24 The patient is an 88 year old female with a PMHx of CAD (s/p stent), HTN, HLD who presents to our ED s/p fall. Patient states around 3 a.m. this morning she was attempting to move from the couch to a chair and her legs gave way under her. States she was on the couch for 40 minutes urinating before she was able to have the energy to ambulate. Patient states she hit her head on the side of a coffee table w/o LOC. Patient called 911 after the fall, however since she didn't want to leave her who has Parkinson's Disease, she declined transport to the hospital and [facility] was called. Patient subsequently called her sons and they brought her to our ED this morning. ROS is positive for 2 month h /o increasing urinary incontinence as well as generalized fatigue. At baseline patient ambulates with a cane. Allergy: Codeine Surgical: Cardiac Stent PMD: Dr. Weiner As per EMR, patient last evaluated in our ED in 10/2018 for syncope. Patient admitted to the hospital with no significant stenosis on carotid dopplers, patient discharged with plan for outpatient echo. Past History - Past Medical History Allergies/Adverse Reactions: Allergies Allergy/AdvReac Type Severity Reaction Status Date / Time codeine AdvReac Verified 06/22/19 06:31 Home Medications: Ambulatory Orders Alprazolam 0.25 mg PO HS PRN 10/16/18 Aspirin [Aspirin EC] 81 mg PO DAILY 10/16/18 Atorvastatin Calcium 10 mg PO ASDIR 10/16/18 Diltiazem Cd [Cardizem Cd -] 120 mg PO DAILY 10/16/18 Metoprolol Succinate 25 mg PO DAILY 10/16/18 Pantoprazole Sodium 40 mg PO PRN 10/16/18 Vitamin B Complex [B Complex] 1 tab PO DAILY 10/16/18 Calcium Carbonate/Vitamin D3 [Calcium 600-Vit D3 2,500 Sftgl] 2 each PO DAILY Cholecalciferol (Vitamin D3) [Vitamin D3] 1,000 unit PO DAILY 06/22/19 Latanoprost/Pf [Latanoprost 0.005% Eye Drop] 7.5 ml OP HS 06/22/19 Vit A/Vit C/Vit E/Zinc/Copper [Preservision Areds Softgel] 1 each PO BID COPD: No HTN: Yes Hypercholesterolemia: Yes - Surgical History Appendectomy: Yes Cardiac Surgery: Yes - Immunization History Immunization Up to Date: Yes - Psycho Social/Smoking Cessation Hx Smoking History: Never smoked Hx Alcohol Use: No Drug/Substance Use Hx: No Review of Systems - Review of Systems Constitutional: No: Fever HEENTM: No: Recent change in vision Respiratory: No: Cough, Shortness of Breath Cardiac (ROS): No: Chest Pain, Lightheadedness, Palpitations, Syncope : Yes: Incontinence. No: Hematuria *Physical Exam - Physical Exam Comments: 06/22/19 07:17 Triage VS reviewed General: awake, alert, moves all 4 extremities, pelvis stable HEENT: Normocephalic, atraumatic, EOMI, PEERLA, no hemotympanum, no perry sign CV: S1, S2, Systolic Murmur Respiratory: CLTA B/L MSK: LUE: L shoulder hematoma w/TTP, L elbow TTP, 2+ radial pulse; no midline C- spine or L/T/S TTP Abdomen: soft, non-tender, (+) bowel sounds ED Treatment Course - LABORATORY CBC & Chemistry Diagram: 06/22/19 06:19 06/22/19 06:19 Medical Decision Making - Medical Decision Making 06/22/19 05:27 88 y/o female s/p fall w/head trauma. VSS Patient A&O x3, pelvis stable, moves all 4 extremities however some LUE ( shoulder/elbow TTP) Will evaluate for fall etiology including infectious, cardiac, neurologic. PLAN: Head CT, L shoulder/elbow HR, L Hip XR, CTAP, Lumbar CT, CXR CBC, CMP, UA/ Urine Cx. SW consult 06/22/19 07:28 Patient signed out to Dr. Dempsey (Attending) for further management. Labs, Imaging pending. Likely disposition is admission for evaluation of worsening urinary incontinence as well as evaluation for syncope. Discharge - Discharge Information Problems reviewed: Yes Clinical Impression/Diagnosis: Fall Condition: Stable - Follow up/Referral Referrals: Bolivar Richards MD [Primary Care Provider] - - Patient Discharge Instructions - Post Discharge Activity
[2019-06-22 06:30] VITALS: BMI 23.3
[2019-06-22 06:44] LABS: BASO % 0.4 % (0-2.0); EOS % 2.2 % (0-4.5); HEMATOCRIT 41.1 % (32.4-45.2); HEMOGLOBIN 14.1 GM/dL (10.7-15.3); LYMPH % 16.9 % (8-40); MCH 31.5 pg (25.7-33.7); MCHC 34.3 g/dl (32.0-36.0); MEAN CELL VOLUME 91.8 fl (80-96); MEAN PLT VOLUME 8.7 fl (7.5-11.1); MONO % 6.4 % (3.8-10.2); NEUT % 74.1 % (42.8-82.8); PLATELET COUNT 165 K/MM3 (134-434); RBC 4.47 M/mm3 (3.60-5.2); RDW 13.7 % (11.6-15.6); WHITE BLOOD COUNT 7.5 K/mm3 (4.0-10.0)
[2019-06-22 06:58] LABS: ALBUMIN 4.2 g/dl (3.4-5.0); BILIRUBIN,TOTAL 0.6 mg/dL (0.2-1); BLOOD UREA NITROGEN 26.5 mg/dL (7-18); CALCIUM 9.5 mg/dL (8.5-10.1); CREATININE 0.9 mg/dL (0.55-1.3); POTASSIUM 4.7 mmol/L (3.5-5.1); TOT PROT 7.5 g/dl (6.4-8.2)
[2019-06-22 08:29] LABS: EPI CELLS 1.1 /HPF (0-5/HPF); HYALINE CASTS 1 /lpf (0-8); URINE APPEARANCE CLEAR; URINE BILIRUBIN NEGATIVE (NEGATIVE); URINE COLOR YELLOW; URINE GLUCOSE (UA) NEGATIVE (NEGATIVE); URINE KETONE NEGATIVE (NEGATIVE); URINE LEUK ESTERASE 1+ (NEGATIVE); URINE NITRITE NEGATIVE (NEGATIVE); URINE PROTEIN NEGATIVE (NEGATIVE); URINE RBC 3 /hpf (0-4); URINE UROBILINOGEN 0.2 mg/dL (0.2-1.0); URINE WBC 34 /hpf (0-5)
[2019-06-22] MEDS ORDERED: CEFTRIAXONE 1,000 MG in DEXTROSE 5%-WATER - 50 ML IVPB ONE (09:52)
[2019-06-22] MEDS ORDERED: CEFTRIAXONE 1 GM/50 ML BAG ONE (10:01)
--- NOTE | 2019-06-22 10:24 | EKG ---
Test Reason : Blood Pressure : / mmHG Vent. Rate : 067 BPM Atrial Rate : 067 BPM P-R Int : 178 ms QRS Dur : 118 ms QT Int : 426 ms P-R-T Axes : 103 -30 074 degrees QTc Int : 450 ms POOR DATA QUALITY, INTERPRETATION MAY BE ADVERSELY AFFECTED SINUS RHYTHM WITH OCCASIONAL PREMATURE VENTRICULAR COMPLEXES LEFT AXIS DEVIATION INFERIOR INFARCT (CITED ON OR BEFORE 16-OCT-2018) ANTEROSEPTAL INFARCT (CITED ON OR BEFORE 16-OCT-2018) ABNORMAL ECG WHEN COMPARED WITH ECG OF 16-OCT-2018 23:33, PREMATURE VENTRICULAR COMPLEXES ARE NOW PRESENT Confirmed by JULIA UNDERWOOD, LAITH ([id number]) on 06/22/2019 10:23:53 AM Referred By: Confirmed By:LAITH DUMONT MD
--- NOTE | 2019-06-22 10:36 | PDOC ---
*Physical Exam - Vital Signs Last Vital Signs Temp Pulse Resp BP Pulse Ox 97.5 F L 71 18 177/81 H 97 06/22/19 05:20 06/22/19 05:20 06/22/19 05:20 06/22/19 05:20 06/22/19 05:20 ED Treatment Course - LABORATORY CBC & Chemistry Diagram: 06/22/19 06:19 06/22/19 06:19 - ADDITIONAL ORDERS Additional order review: Laboratory Results 06/22/19 06/22/19 06/22/19 07:58 06:19 06:19 Sodium 140 Potassium 4.7 Chloride 108 H Carbon Dioxide 30 Anion Gap 2 L BUN 26.5 H Creatinine 0.9 Est GFR (CKD-EPI)AfAm 67.10 Est GFR (CKD-EPI)NonAf 57.90 Random Glucose 140 H Calcium 9.5 Total Bilirubin 0.6 AST 39 H ALT 24 Alkaline Phosphatase 128 H Creatine Kinase 103 Troponin I 0.02 Total Protein 7.5 Albumin 4.2 Urine Color Yellow Urine Appearance Clear Urine pH 7.0 D Ur Specific [place] 1.005 L Urine Protein Negative Urine Glucose (UA) Negative Urine Ketones Negative Urine Blood Trace Urine Nitrite Negative Urine Bilirubin Negative Urine Urobilinogen 0.2 Ur Leukocyte Esterase 1+ H Urine WBC (Auto) 34 Urine RBC (Auto) 3 Urine Casts (Auto) 1 U Epithel Cells (Auto) 1.1 Urine Bacteria (Auto) 6.0 06/22/19 06:19 RBC 4.47 MCV 91.8 MCHC 34.3 RDW 13.7 MPV 8.7 Neutrophils % 74.1 Lymphocytes % 16.9 Monocytes % 6.4 Eosinophils % 2.2 Basophils % 0.4 - Medications Given in the ED: ED Medications Discontinued Medications Generic Name Dose Route Start Last Admin Trade Name Freq PRN Reason Stop Dose Admin Ceftriaxone Sodium 1,000 mg/ 50 mls @ 100 mls/hr 06/22/19 09:52 06/22/19 10: 11 Dextrose IVPB 06/22/19 10:21 100 mls/hr ONCE ONE Administration Medical Decision Making - Medical Decision Making 06/22/19 10:88-year-old female history of hypertension CAD status post stent here status post fall versus syncope. Patient was seen by the overnight team ice and care of the patient at 7 AM briefly the patient states she was trying to get up out of her bed to transfer to chair in the early a.m. states only had a fall she states when she fell she hit her head on a table she said happened so fast she is unsure if she lost consciousness or not. This has happened in the past she does have a history of syncope. Patient lives at home with her who has severe Parkinson's disease they have home health aide for her for 12 hours a day but in the evening she is the primary caregiver per her son at the bedside she has been losing weight not taking care of herself worried about her spouse. Patient today was complaining of neck pain left shoulder and elbow pain and back pain was evaluated with CT head and neck as well as a CT abdomen pelvis and lumbar spine. CT lumbar spine shows no acute fractures CT head is unremarkable CT cervical spine shows no acute fractures abdomen pelvis is otherwise unremarkable. Patient is complaining of frequent urination on my evaluation does still have pain with range of motion of her neck. Will require a c-collar placement as she is unable to obtain MRI to rule out any ligamentous injury due to the persistent pain and concern for syncope patient will be admitted to the hospital her primary doctor is Dr. carranza. Will require social work consult as she is likely unable to care for her in the evenings and they may require 24-hour care or home health nurse. pt noted to have uti in addition, given ceftriaxone. eye drops : brimodine 0.2% bid dorzolamide bid rhopressa 0.02 qhs left eye xyzalta 0.024 qhs left eye latanoprost 0.0005% qhs right eye 06/22/19 10:36 Discharge - Discharge Information Problems reviewed: Yes Clinical Impression/Diagnosis: Fall, Syncope and collapse, UTI (urinary tract infection) Condition: Stable - Admission Yes - Follow up/Referral Referrals: Bolivar Carranza MD [Primary Care Provider] - - Patient Discharge Instructions - Post Discharge Activity
[2019-06-22] MEDS ORDERED: ACETAMINOPHEN 325 MG TABLET (FP) PO ONE (11:17)
[2019-06-22] MEDS ORDERED: ACETAMINOPHEN 325 MG TABLET (FP) ONE (11:25)
[2019-06-22] MEDS ORDERED: ALPRAZolam 0.25 MG TABLET PO PRN (14:13)
--- NOTE | 2019-06-22 14:13 | HP ---
<Daryl Kramer - Last Filed: 06/22/19 20:53> CHIEF COMPLAINT: PCP: HISTORY OF PRESENT ILLNESS: 88yo F with h/o CAD s/p stenting, HTN, HLD, and sarcoidosis who initially presented to this facility s/p fall related to questionable pre-syncopal event. Pt was noted to be on the cough and sitting for a while due to physical weakness. Pt attempted to get up and upon standing felt warm and fell over. There was questionable loss of urinary control and pt hit head on coffee table. She did not lose consciousness and there was no overt bleeding on the floor. Ambulance was called and pt opted for son to bring her to ER. Pt's son at bedside notes she has been lacking nutrition lately due to taking care of her (who has Parkinson's). Pt has had 10lbs of weight loss in past month, but no night sweats. She admits she needs to drink more water across her day. Of note, pt was here previously in 2019 due to syncope related to dehydration and was discharged home after hydration. Pt denies any current headaches, dizziness/lightheadedness, cough, rhinorrhea, sick contacts, blurry vision, shortness of breath, chest pain, palpitations, abdominal pain, diarrhea/constipation, n/v. Pt endorses slight dysuria intermittently and has been having polyuria throughout the night. Recent Travel: denies PAST MEDICAL HISTORY: sere above PAST SURGICAL HISTORY: Cardiac stent placement (unknown type) 2012 LAD Hip replacement 17 years ago Left lower lobe resection for sarcoid 1985 Social History: Smoking:denies Alcohol: None Drugs: denies Lives with ; has 12-hr aide and she is primarily care-taker at night Ambulates with cane normally Family History: noncontributory Allergies codeine Adverse Reaction (Verified 06/22/19 06:31) HOME MEDICATIONS: Home Medications Medication Instructions Recorded Alprazolam 0.25 mg PO HS PRN 10/16/18 Aspirin [Aspirin EC] 81 mg PO DAILY 10/16/18 Atorvastatin Calcium 10 mg PO ASDIR 10/16/18 Diltiazem Cd [Cardizem Cd -] 120 mg PO DAILY 10/16/18 Metoprolol Succinate 25 mg PO DAILY 10/16/18 Pantoprazole Sodium 40 mg PO PRN 10/16/18 Vitamin B Complex [B Complex] 1 tab PO DAILY 10/16/18 Calcium Carbonate/Vitamin D3 2 each PO DAILY 06/22/19 [Calcium 600-Vit D3 2,500 Sftgl] Cholecalciferol (Vitamin D3) 1,000 unit PO DAILY 06/22/19 [Vitamin D3] Latanoprost/Pf [Latanoprost 0.005% 7.5 ml OP HS 06/22/19 Eye Drop] Vit A/Vit C/Vit E/Zinc/Copper 1 each PO BID 06/22/19 [Preservision Areds Softgel] REVIEW OF SYSTEMS As per [facility] PHYSICAL EXAMINATION Vital Signs - 24 hr 06/22/19 06/22/19 06/22/19 05:20 10:36 12:50 Temperature 97.5 F L 97.7 F 97.7 F Pulse Rate 71 Pulse Rate [ 77 72 Left Radial] Respiratory 18 18 20 Rate Blood Pressure 177/81 H Blood Pressure 197/83 H 135/49 L [Right Arm] O2 Sat by Pulse 97 96 98 Oximetry (%) 06/22/19 14:02 Temperature 97.7 F Pulse Rate 74 Pulse Rate [ Left Radial] Respiratory 18 Rate Blood Pressure 151/68 Blood Pressure [Right Arm] O2 Sat by Pulse Oximetry (%) GENERAL: Awake, alert, and fully oriented, in no acute distress. HEAD: Small hematoma without any laceration or structural compromise to skull noted L temperal-parietal region EYES: PERNELL, EOMI without nystagmus, sclera anicteric EARS, NOSE, THROAT: Oropharynx clear without exudates. No tongue lacerations. Moist mucous membranes. NECK: aROM intact, TTP in posterior musculature, No JVD LUNGS: CTA bilaterally. No wheezes, and no crackles. No accessory muscle use. HEART: RRR, normal S1 and S2 without murmur ABDOMEN: Soft,NT/ND, normoactive bowel sounds, no guarding MUSCULOSKELETAL: Normal range of motion at all joints. No bony deformities or tenderness. No CVA tenderness. EXTREMITIES: 2+ pulses, warm, well-perfused. No calf tenderness. No peripheral edema. NEUROLOGICAL: optical advisor II-XII intact. Strength 4/5 throughout and symmetrical, no sensation loss. Normal speech PSYCHIATRIC: Cooperative. Good eye contact. Appropriate mood and affect. SKIN: Warm, dry, no rashes. Laboratory Results - last 24 hr 06/22/19 06/22/1919 06:19 06:19 06:19 WBC 7.5 RBC 4.47 Hgb 14.1 Hct 41.1 MCV 91.8 MCH 31.5 MCHC 34.3 RDW 13.7 Plt Count 165 D MPV 8.7 Absolute Neuts (auto) 5.5 Neutrophils % 74.1 Lymphocytes % 16.9 Monocytes % 6.4 Eosinophils % 2.2 Basophils % 0.4 Nucleated RBC % 0 Sodium 140 Potassium 4.7 Chloride 108 H Carbon Dioxide 30 Anion Gap 2 L BUN 26.5 H Creatinine 0.9 Est GFR (CKD-EPI)AfAm 67.10 Est GFR (CKD-EPI)NonAf 57.90 Random Glucose 140 H Calcium 9.5 Total Bilirubin 0.6 AST 39 H ALT 24 Alkaline Phosphatase 128 H Creatine Kinase 103 Troponin I 0.02 Total Protein 7.5 Albumin 4.2 Urine Color Urine Appearance Urine pH Ur Specific [place] Urine Protein Urine Glucose (UA) Urine Ketones Urine Blood Urine Nitrite Urine Bilirubin Urine Urobilinogen Ur Leukocyte Esterase Urine WBC (Auto) Urine RBC (Auto) Urine Casts (Auto) U Epithel Cells (Auto) Urine Bacteria (Auto) 06/22/19 07:58 WBC RBC Hgb Hct MCV MCH MCHC RDW Plt Count MPV Absolute Neuts (auto) Neutrophils % Lymphocytes % Monocytes % Eosinophils % Basophils % Nucleated RBC % Sodium Potassium Chloride Carbon Dioxide Anion Gap BUN Creatinine Est GFR (CKD-EPI)AfAm Est GFR (CKD-EPI)NonAf Random Glucose Calcium Total Bilirubin AST ALT Alkaline Phosphatase Creatine Kinase Troponin I Total Protein Albumin Urine Color Yellow Urine Appearance Clear Urine pH 7.0 D Ur Specific [place] 1.005 L Urine Protein Negative Urine Glucose (UA) Negative Urine Ketones Negative Urine Blood Trace Urine Nitrite Negative Urine Bilirubin Negative Urine Urobilinogen 0.2 Ur Leukocyte Esterase 1+ H Urine WBC (Auto) 34 Urine RBC (Auto) 3 Urine Casts (Auto) 1 U Epithel Cells (Auto) 1.1 Urine Bacteria (Auto) 6.0 Active Medications Alprazolam (Xanax -) 0.25 mg PO HS PRN PRN Reason: sleep Aspirin (Ecotrin -) 81 mg PO DAILY [facility] Atorvastatin Calcium (Lipitor -) 10 mg PO [id number]@2200 [facility] Brimonidine Tartrate (Alphagan 0.2% -) 1 drop OS BID [facility] Diltiazem HCl (Cardizem Cd -) 120 mg PO DAILY [facility] Dorzolamide HCl (Trusopt 2%) 1 drop OS BID [facility] Latanoprost (Xalatan 0.005% Eye Drops -) 1 drop OD HS [facility] Metoprolol Succinate (Toprol Xl -) 25 mg PO DAILY [facility] ASSESSMENT/PLAN: Pre-Syncopal event S/p fall with head trauma Simple cystitis History of HTN History of CAD with stenting History of HLD Glaucoma --Orthostatic ordered --If positive can hydrate --Tylenol 1gm ordered for current pain --Imaging reviewed without any fractures --Can use C-collar PRN --Will continue Rocephin daily for simple cystitis --Awaiting urine culture --convention worker consult due to home --Physical therapy ordered; likely will need rehab based on deconditioning and physical decline --Can continue ASA 81mg qdaily --Continue Toprol XL 25mg qdaily --Continue Cardizem CD 120mg qdaily --Continue Xanax 0.25mg HS PRN --Continue Lipitor 10mg // --Continue home eye drop regiment for glaucoma FEN: Fluids: Can bolus hydrate based on orthostatics Electrolyte abnormalities: None Nutrition: Sodium-controlled diet PPX: DVT - SCDS GI - Not indicated Dispo: Admit M/S; Sw; physical therapy eval CAse discussed with Dr. Gini Kramer, DO - IM PGY-3 Visit type - Emergency Visit Emergency Visit: Yes ED Registration Date: 06/22/19 Care time: The patient presented to the Emergency Department on the above date and was hospitalized for further evaluation of their emergent condition. - New Patient This patient is new to me today: Yes Date on this admission: 06/22/19 - Critical Care Critical Care patient: No ATTENDING PHYSICIAN STATEMENT I saw and evaluated the patient. I reviewed the resident's note and discussed the case with the resident. I agree with the resident's findings and plan as documented. SUBJECTIVE: OBJECTIVE: ASSESSMENT AND PLAN: <Dean Rubalcava - Last Filed: 06/24/19 06:48> Seen and examiend; agree with resident note as documented aside from as I have supplemented. All historical and PE findings mccartney to care as well as labs imaging and diagnostics were independently reviewed and verified by myself. I discussed the case at length with the resident team. CHIEF COMPLAINT: Syncope Seen and examined; agree with provided resident historical findings. Will add that the patient has a unclear HCP issue due to her husbanmd with underlying active hallucinations from Parkinson's Dementia per the son. She herself likely lacks capacity and needs to appoint a new HCP. 10 sys ROS completed to the best of our ability with underlying MCI and noted. HOME MEDICATIONS: Home Medications Medication Instructions Recorded Alprazolam 0.25 mg PO HS PRN 10/16/18 Aspirin [Aspirin EC] 81 mg PO DAILY 10/16/18 Atorvastatin Calcium 10 mg PO ASDIR 10/16/18 Diltiazem Cd [Cardizem Cd -] 120 mg PO DAILY 10/16/18 Metoprolol Succinate 25 mg PO DAILY 10/16/18 Pantoprazole Sodium 40 mg PO PRN 10/16/18 Vitamin B Complex [B Complex] 1 tab PO DAILY 10/16/18 Calcium Carbonate/Vitamin D3 2 each PO DAILY 06/22/19 [Calcium 600-Vit D3 2,500 Sftgl] Cholecalciferol (Vitamin D3) 1,000 unit PO DAILY 06/22/19 [Vitamin D3] Latanoprost/Pf [Latanoprost 0.005% 7.5 ml OP HS 06/22/19 Eye Drop] Vit A/Vit C/Vit E/Zinc/Copper 1 each PO BID 06/22/19 [Preservision Areds Softgel] REVIEW OF SYSTEMS CONSTITUTIONAL: Absent: fever, chills, diaphoresis, generalized weakness, malaise, loss of appetite, weight change HEENT: Absent: rhinorrhea, nasal congestion, throat pain, throat swelling, difficulty swallowing, mouth swelling, ear pain, eye pain, visual changes CARDIOVASCULAR: Absent: chest pain, syncope, palpitations, irregular heart rate, lightheadedness , peripheral edema RESPIRATORY: Absent: cough, shortness of breath, dyspnea with exertion, orthopnea, wheezing, stridor, hemoptysis GASTROINTESTINAL: Absent: abdominal pain, abdominal distension, nausea, vomiting, diarrhea, constipation, melena, hematochezia GENITOURINARY: Absent: dysuria, frequency, urgency, hesitancy, hematuria, flank pain, genital pain MUSCULOSKELETAL: Absent: myalgia, arthralgia, joint swelling, back pain, neck pain SKIN: Absent: rash, itching, pallor HEMATOLOGIC/IMMUNOLOGIC: Absent: easy bleeding, easy bruising, lymphadenopathy, frequent infections ENDOCRINE: Absent: unexplained weight gain, unexplained weight loss, heat intolerance, cold intolerance NEUROLOGIC: Absent: headache, focal weakness or paresthesias, dizziness, unsteady gait, seizure, mental status changes, bladder or bowel incontinence PSYCHIATRIC: Absent: anxiety, depression, suicidal or homicidal ideation, hallucinations. PHYSICAL EXAMINATION Vital Signs - 24 hr 06/22/19 06/22/19 06/22/19 05:20 10:36 11:08 Temperature 97.5 F L 97.7 F Pulse Rate 71 Pulse Rate [ 77 Left Radial] Pulse Rate [ 89 Left side Sitting] Pulse Rate [ 85 Left side Standing] Pulse Rate [ 87 Supine] Respiratory 18 18 Rate Blood Pressure 177/81 H Blood Pressure 146/68 [Left side Sitting] Blood Pressure 134/69 [Left side Standing] Blood Pressure 197/83 H [Right Arm] Blood Pressure 144/61 [Supine] O2 Sat by Pulse 97 96 Oximetry (%) 06/22/19 06/22/19 06/22/19 12:50 14:02 14:14 Temperature 97.7 F 97.7 F Pulse Rate 74 Pulse Rate [ 72 Left Radial] Pulse Rate [ Left side Sitting] Pulse Rate [ Left side Standing] Pulse Rate [ Supine] Respiratory 20 18 18 Rate Blood Pressure 151/68 Blood Pressure [Left side Sitting] Blood Pressure [Left side Standing] Blood Pressure 135/49 L [Right Arm] Blood Pressure [Supine] O2 Sat by Pulse 98 98 Oximetry (%) 06/22/19 06/22/19 06/22/19 17:00 18:00 21:00 Temperature 97.4 F L Pulse Rate 65 85 Pulse Rate [ Left Radial] Pulse Rate [ Left side Sitting] Pulse Rate [ Left side Standing] Pulse Rate [ Supine] Respiratory 20 20 Rate Blood Pressure 138/61 134/69 Blood Pressure [Left side Sitting] Blood Pressure [Left side Standing] Blood Pressure [Right Arm] Blood Pressure [Supine] O2 Sat by Pulse 98 Oximetry (%) GENERAL: Awake, alert, and fully oriented, in no acute distress. HEAD: Normal with no signs of trauma. EYES: Pupils equal, round and reactive to light, extraocular movements intact, sclera anicteric, conjunctiva clear. No lid lag. EARS, NOSE, THROAT: Ears normal, nares patent, oropharynx clear without exudates. Moist mucous membranes. NECK: Normal range of motion, supple without lymphadenopathy, JVD, or masses. LUNGS: Breath sounds equal, clear to auscultation bilaterally. No wheezes, and no crackles. No accessory muscle use. HEART: Regular rate and rhythm, normal S1 and S2 without murmur, rub or gallop. ABDOMEN: Soft, nontender, not distended, normoactive bowel sounds, no guarding, no rebound, no masses. No hepatomegaly or splenomegaly. MUSCULOSKELETAL: Normal range of motion at all joints. No bony deformities or tenderness. No CVA tenderness. UPPER EXTREMITIES: 2+ pulses, warm, well-perfused. No cyanosis. No clubbing. No peripheral edema. LOWER EXTREMITIES: 2+ pulses, warm, well-perfused. No calf tenderness. No peripheral edema. NEUROLOGICAL: Cranial nerves II-XII intact. Normal speech. Normal gait. PSYCHIATRIC: Cooperative. Good eye contact. Appropriate mood and affect. SKIN: Warm, dry, normal turgor, no rashes or lesions noted, normal capillary refill. Laboratory Results - last 24 hr 06/22/19 06/22/19 06/22/19 06:19 06:19 06:19 WBC 7.5 RBC 4.47 Hgb 14.1 Hct 41.1 MCV 91.8 MCH 31.5 MCHC 34.3 RDW 13.7 Plt Count 165 D MPV 8.7 Absolute Neuts (auto) 5.5 Neutrophils % 74.1 Lymphocytes % 16.9 Monocytes % 6.4 Eosinophils % 2.2 Basophils % 0.4 Nucleated RBC % 0 Sodium 140 Potassium 4.7 Chloride 108 H Carbon Dioxide 30 Anion Gap 2 L BUN 26.5 H Creatinine 0.9 Est GFR (CKD-EPI)AfAm 67.10 Est GFR (CKD-EPI)NonAf 57.90 Random Glucose 140 H Calcium 9.5 Total Bilirubin 0.6 AST 39 H ALT 24 Alkaline Phosphatase 128 H Creatine Kinase 103 Troponin I 0.02 Total Protein 7.5 Albumin 4.2 Urine Color Urine Appearance Urine pH Ur Specific [place] Urine Protein Urine Glucose (UA) Urine Ketones Urine Blood Urine Nitrite Urine Bilirubin Urine Urobilinogen Ur Leukocyte Esterase Urine WBC (Auto) Urine RBC (Auto) Urine Casts (Auto) U Epithel Cells (Auto) Urine Bacteria (Auto) 06/22/19 07:58 WBC RBC Hgb Hct MCV MCH MCHC RDW Plt Count MPV Absolute Neuts (auto) Neutrophils % Lymphocytes % Monocytes % Eosinophils % Basophils % Nucleated RBC % Sodium Potassium Chloride Carbon Dioxide Anion Gap BUN Creatinine Est GFR (CKD-EPI)AfAm Est GFR (CKD-EPI)NonAf Random Glucose Calcium Total Bilirubin AST ALT Alkaline Phosphatase Creatine Kinase Troponin I Total Protein Albumin Urine Color Yellow Urine Appearance Clear Urine pH 7.0 D Ur Specific [place] 1.005 L Urine Protein Negative Urine Glucose (UA) Negative Urine Ketones Negative Urine Blood Trace Urine Nitrite Negative Urine Bilirubin Negative Urine Urobilinogen 0.2 Ur Leukocyte Esterase 1+ H Urine WBC (Auto) 34 Urine RBC (Auto) 3 Urine Casts (Auto) 1 U Epithel Cells (Auto) 1.1 Urine Bacteria (Auto) 6.0 Echo ordered EKG reviewed; no high degree AVB. Telemetry ordered. ASSESSMENT/PLAN: Patient presents with syncopal episode; pending orthostatics, echo, PT eval. Is deconditioned and complains of weakness and diminished functional capacity and requires additional help at home to complete ADLs and IADLs. Admitting to the medicine service and will assess further. Agree with resident problem list as documented. If underlying severe cardiac abnormality is discovered will pursue urgent consult but less likely Full code for now; needs family meeting and discussion of overall goals of care. 45 mins spent in this admission, half of which is face to face counseling. ATTENDING PHYSICIAN STATEMENT I saw and evaluated the patient. I reviewed the resident's note and discussed the case with the resident. I agree with the resident's findings and plan as documented. SUBJECTIVE: OBJECTIVE: ASSESSMENT AND PLAN:
[2019-06-22] MEDS ORDERED: PT OWN MED DRAWER 7, Y5N ONE (21:17)
[2019-06-22] MEDS: DORZOLAMIDE 2% HCL OPHTHALMIC SOLUTION 10 ML BOTTLE OS SCH (21:20)
[2019-06-22] MEDS: LATANOPROST 0.005% OPHTH SOLN 2.5ML BOTTLE OD SCH (21:21)
[2019-06-22] MEDS: BRIMONIDINE TARTRATE 0.2% OPHTHALMIC 5 ML BOTTLE OS SCH (21:24)
[2019-06-22] MEDS ORDERED: ATORVASTATIN CA 10 MG TABLET (FP) PO SCH (22:00)
[2019-06-23 07:05] LABS: HEMATOCRIT 36.6 % (32.4-45.2); HEMOGLOBIN 12.5 GM/dL (10.7-15.3); MCH 31.1 pg (25.7-33.7); MCHC 34.1 g/dl (32.0-36.0); MEAN CELL VOLUME 91.2 fl (80-96); MEAN PLT VOLUME 8.6 fl (7.5-11.1); PLATELET COUNT 162 K/MM3 (134-434); RBC 4.01 M/mm3 (3.60-5.2); RDW 13.7 % (11.6-15.6); WHITE BLOOD COUNT 6.6 K/mm3 (4.0-10.0)
[2019-06-23 07:34] LABS: ALBUMIN 3.4 g/dl (3.4-5.0); BILIRUBIN,TOTAL 0.5 mg/dL (0.2-1); BLOOD UREA NITROGEN 29.9 mg/dL (7-18); CALCIUM 9.1 mg/dL (8.5-10.1); CREATININE 0.9 mg/dL (0.55-1.3); MAGNESIUM 2.1 mg/dL (1.8-2.4); POTASSIUM 3.8 mmol/L (3.5-5.1); TOT PROT 6.1 g/dl (6.4-8.2)
[2019-06-23] MEDS ORDERED: ACETAMINOPHEN 325 MG TABLET (FP) PO PRN (08:11)
[2019-06-23] MEDS ORDERED: DEXTROSE 5%-WATER - 50 ML IVPB ONE ×2 (09:41→10:06)
[2019-06-23] MEDS ORDERED: cefTRIAXone SODIUM 1 GM VIAL ONE ×2 (09:41→10:06)
[2019-06-23] MEDS ORDERED: CEFTRIAXONE 1 GM in DEXTROSE 5%-WATER - 50 ML IVPB SCH (10:00)
[2019-06-23] MEDS: IBUPROFEN 600 MG TABLET (FP) PO PRN (10:01)
[2019-06-23] MEDS: ASPIRIN COATED 81 MG TABLET.EC PO SCH (10:02)
[2019-06-23] MEDS: metoPROLOL SUCCINATE 25 MG TAB.SR.24H (FP) PO SCH (10:02)
[2019-06-23] MEDS: BRIMONIDINE TARTRATE 0.2% OPHTHALMIC 5 ML BOTTLE OS SCH ×2 (10:03→21:46)
[2019-06-23] MEDS: DORZOLAMIDE 2% HCL OPHTHALMIC SOLUTION 10 ML BOTTLE OS SCH ×2 (10:04→21:47)
[2019-06-23] MEDS ORDERED: PT OWN MED DRAWER 7, Y5N ONE (11:56)
--- NOTE | 2019-06-23 16:04 | ECHO ---
Name: RO PRATER Exam:Adult Echocardiogram Study Date: 06/23/2019 02:32 PM Age: 88 yrs Height: 62 in Weight: 128 lb BSA: 1.6 m2 MMode/2D Measurements & Calculations IVSd: 0.68 cm Ao root diam: 2.4 cm LVIDd: 4.3 cm LA dimension: 3.6 cm LVIDs: 3.1 cm LVPWd: 1.2 cm LVPWs: 1.3 cm EDV(Teich): 81.2 ml ESV(Teich): 39.0 ml LVOT diam: 2.2 cm LAV (MOD-bp): 62.0 ml Doppler Measurements & Calculations MV E max viet: 61.7 cm/sec Ao V2 max: 138.7 cm/sec MV A max viet: 60.2 cm/sec Ao max P.7 mmHg MV E/A: 1.0 MV dec time: 0.17 sec ELIZABETH(V,D): 1.8 cm2 LV V1 max P.8 mmHg MR max viet: 382.6 cm/sec LV V1 max: 66.3 cm/sec MR max P.5 mmHg TR max viet: 253.5 cm/sec PA V2 max: 112.3 cm/sec TR max P.7 mmHg PA max P.1 mmHg Med Peak E' Viet: 5.3 cm/sec Med E/e': 11.7 Lat Peak E' Viet: 6.1 cm/sec Lat E/e': 10.0 Procedure A complete two-dimensional transthoracic echocardiogram was performed (2D, M-mode, Doppler and color flow Doppler). Left Ventricle The left ventricular size, thickness and function are normal. The left ventricular ejection fraction is normal. Ejection Fraction = 55-60%. The left ventricular wall motion is normal. Right Ventricle The right ventricle is normal in size and function. Atria Normal left and right atrial size and function. Mitral Valve There is trace mitral regurgitation. Tricuspid Valve There is trace tricuspid regurgitation. Right ventricular systolic pressure is normal. Aortic Valve No hemodynamically significant valvular aortic stenosis. No aortic regurgitation is present. Pulmonic Valve There is no pulmonic valvular regurgitation. Great Vessels The aortic root is normal size. Pericardium/Pleura There is no pericardial effusion. Interpretation Summary The left ventricular size, thickness and function are normal The right ventricle is normal in size and function. There is trace mitral regurgitation. There is trace tricuspid regurgitation. MD Branden Stallworth 06/23/2019 04:03 PM
--- NOTE | 2019-06-23 20:51 | PN ---
Progress Note (short form) - Note Progress Note: HPI: Pt without any events overnight. No telemetry alarms overnight. No lightheadedness, no dizziness, no SOB, no CP, no palpitations. Generalized weakness remains, but slightly improved Vital Signs 06/23/19 06:00 Temperature 97.4 F L Temperature Oral Source Pulse Rate 74 Respiratory 20 Rate Blood Pressure 145/60 Blood Pressure Supine Position GENERAL: Awake, alert, and fully oriented, in no acute distress. HEAD: Small hematoma without any laceration or structural compromise to skull noted L temperal-parietal region EYES: PERNELL, EOMI without nystagmus, sclera anicteric EARS, NOSE, THROAT: Oropharynx clear without exudates. No tongue lacerations. Moist mucous membranes. NECK: aROM intact, TTP in posterior musculature, No JVD LUNGS: CTA bilaterally. No wheezes, and no crackles. No accessory muscle use. HEART: RRR, normal S1 and S2 without murmur ABDOMEN: Soft,NT/ND, normoactive bowel sounds, no guarding MUSCULOSKELETAL: Normal range of motion at all joints. No bony deformities or tenderness. No CVA tenderness. EXTREMITIES: 2+ pulses, warm, well-perfused. No calf tenderness. No peripheral edema. NEUROLOGICAL: restaurant hourly team member II-XII intact. Strength 4/5 throughout and symmetrical, no sensation loss. Normal speech PSYCHIATRIC: Cooperative. Good eye contact. Appropriate mood and affect. SKIN: Warm, dry, no rashes. CBC, BMP 06/23/19 05:20 06/23/19 05:20 Microbiology 06/22/19 07:58 Urine - Urine Clean Catch Urine Culture - Final NO GROWTH OBTAINED Active Medications Acetaminophen (Tylenol -) 650 mg PO Q4H PRN PRN Reason: PAIN LEVEL 4 - 6 Aspirin (Ecotrin -) 81 mg PO DAILY [facility] Last Admin: 06/23/19 10:02 Dose: 81 mg Atorvastatin Calcium (Lipitor -) 10 mg PO [id number]@2200 [facility] Last Admin: 06/22/19 21:20 Dose: 10 mg Brimonidine Tartrate (Alphagan 0.2% -) 1 drop OS BID [facility] Last Admin: 06/23/19 10:03 Dose: 1 drop Diltiazem HCl (Cardizem Cd -) 120 mg PO DAILY [facility] Last Admin: 06/23/19 10:02 Dose: 120 mg Dorzolamide HCl (Trusopt 2%) 1 drop OS BID [facility] Last Admin: 06/23/19 10:04 Dose: 1 drop Ibuprofen (Motrin -) 600 mg PO Q6H PRN PRN Reason: PAIN LEVEL 6-10 Last Admin: 06/23/19 10:01 Dose: 600 mg Latanoprost (Xalatan 0.005% Eye Drops -) 1 drop OD HS [facility] Last Admin: 06/22/19 21:21 Dose: 1 drop Metoprolol Succinate (Toprol Xl -) 25 mg PO DAILY [facility] Last Admin: 06/23/19 10:02 Dose: 25 mg Assessment and Plan: Pre-Syncopal event S/p fall with head trauma History of HTN History of CAD with stenting History of HLD Glaucoma --Pt tolerating PO well; discontinued fluids --Tylenol 650mg q4h PRN for pain --Urine cultures negative --Discontinued ABX and can observe off --Physical therapy noted; pt walks ~5 feet and will benefit from SNF placement --CM/SW arranged --airport utility worker consult due to home needs noted --Can continue ASA 81mg qdaily --Continue Toprol XL 25mg qdaily --Continue Cardizem CD 120mg qdaily --Discontinue Xanax 0.25mg HS PRN --If anxiety can use 0.125mg if needed --Continue Lipitor 10mg // --Continue home eye drop regiment for glaucoma FEN: Fluids: PO only Electrolyte abnormalities: None Nutrition: Sodium-controlled diet PPX: DVT - SCDS GI - Not indicated Dispo: Will need SNF placement CAse discussed with Dr. Gini Krmaer, DO - IM PGY-3 <Daryl Kramer - Last Filed: 06/23/19 21:49> - Note Progress Note: Seen and examined; agree with the note as documented above aside from as supplemented by myself. Independently reviewed all mccartney historical and physical exam findings as well as all labs, imaging, and diagnostics. I discussed the case at length with the resident team and spent 30 minutes in the ongoing care of this patient, at least 50% of which was spent in delivering face to face counseling. No new overnight events to add; some PVCs on monitor so will followup with electrolytes. Echocardiogram is pending. Following up PT evaluation for moderate to severe physical deconditioning. 10 sys ROS reviewed VS, labs, imaging reviewed NAD AAO Resting in bed NC AT EOMI PERRLA HR wnl, no fnd. Followup repeat orthostatic VS in AM. Lungs CTAB, w/ sym exp NT ND +BS CN2-12 wnl, no fnd Normal mood, appropriate behavior, not agitated, poor 3-item recall Telemetry reviewed Formal read on EKG reviewed A/P: Patient presents for syncope and is found to have marked deconditioning and is pending rehabilitation assessment. Workup continues to be pending. If they do qualify for SNF authorization will be sent as soon as possible. Continue with PO fluids, followup echocardiogram, lytes, and tele. Followup consults. Problems include: -Preyncope, resolved. -MCI vs. Dementia (Son is HCP due to underlying dementia; paperwork completed by resident team) -PVCs -Physical Deconditioning -Hx CAD s/p PCI -Hx Glaucoma on home eyedrops, nonacute -Hx HTN, uncontrolled -History of Sarcoid; will have pulm see to ensure all is being done to help her exercise tolerance given underlying illnees combined with deconditioning, etc. Full Code (confirmed with son; she indicates that she has a living will at home) <Dean Rubalcava - Last Filed: 06/24/19 06:56>
[2019-06-23] MEDS: LATANOPROST 0.005% OPHTH SOLN 2.5ML BOTTLE OD SCH (21:44)
[2019-06-24 04:33] VITALS: TEMP 97.5
[2019-06-24 06:57] LABS: BLOOD UREA NITROGEN 34.5 mg/dL (7-18); CALCIUM 8.6 mg/dL (8.5-10.1); CREATININE 0.9 mg/dL (0.55-1.3); POTASSIUM 4.1 mmol/L (3.5-5.1)
--- NOTE | 2019-06-24 07:05 | DS ---
Physical Exam: SUBJECTIVE: Pt's aching improved. No cmpalints today. no telemetry events noted. still with some functional weakness. Authorization approved today and transport set for 11:45am. Pt aware OBJECTIVE: Vital Signs Period Temp Pulse Resp BP Sys/Oleary Pulse Ox Last 24 Hr 97.5 F-98.6 F 64-91 18-20 119-154/59-83 98-98 PHYSICAL EXAM GENERAL: Awake, alert, and fully oriented, NAD HEENT: Temporal-parietal hematoma improve, PERNELL, MMM NECK: aROM intact, no TTP of neck, No JVD LUNGS: CTA bilaterally. No wheezes, and no crackles. No accessory muscle use. HEART: RRR, normal S1 and S2 without murmur ABDOMEN: Soft,NT/ND, normoactive bowel sounds, no guarding EXTREMITIES: 2+ pulses, warm No calf tenderness. No peripheral edema. PSYCHIATRIC: Cooperative. Good eye contact. Appropriate mood and affect. SKIN: Warm, dry, no rashes, ecchymosis noted on L shoulder LABS Laboratory Results - last 24 hr 06/23/19 06/23/19 06/24/19 05:20 05:20 05:22 WBC 6.6 RBC 4.01 Hgb 12.5 Hct 36.6 MCV 91.2 MCH 31.1 MCHC 34.1 RDW 13.7 Plt Count 162 MPV 8.6 Sodium 141 143 Potassium 3.8 4.1 Chloride 108 H 110 H Carbon Dioxide 31 28 Anion Gap 2 L 6 L BUN 29.9 H 34.5 H Creatinine 0.9 0.9 Est GFR (CKD-EPI)AfAm 67.10 67.10 Est GFR (CKD-EPI)NonAf 57.90 57.90 Random Glucose 132 H 115 H Calcium 9.1 8.6 Magnesium 2.1 Total Bilirubin 0.5 AST 17 ALT 19 Alkaline Phosphatase 102 Total Protein 6.1 L Albumin 3.4 Active Medications Acetaminophen (Tylenol -) 650 mg PO Q4H PRN PRN Reason: PAIN LEVEL 4 - 6 Last Admin: 06/24/19 06:00 Dose: 650 mg Aspirin (Ecotrin -) 81 mg PO DAILY [facility] Last Admin: 06/23/19 10:02 Dose: 81 mg Atorvastatin Calcium (Lipitor -) 10 mg PO [id number] [facility] Last Admin: 06/22/19 21:20 Dose: 10 mg Brimonidine Tartrate (Alphagan 0.2% -) 1 drop OS BID [facility] Last Admin: 06/23/19 21:46 Dose: 1 drop Diltiazem HCl (Cardizem Cd -) 120 mg PO DAILY [facility] Last Admin: 06/23/19 10:02 Dose: 120 mg Dorzolamide HCl (Trusopt 2%) 1 drop OS BID [facility] Last Admin: 06/23/19 21:47 Dose: 1 drop Ibuprofen (Motrin -) 600 mg PO Q6H PRN PRN Reason: PAIN LEVEL 6-10 Last Admin: 06/23/19 10:01 Dose: 600 mg Latanoprost (Xalatan 0.005% Eye Drops -) 1 drop OD HS [facility] Last Admin: 06/23/19 21:44 Dose: 1 drop Metoprolol Succinate (Toprol Xl -) 25 mg PO DAILY [facility] Last Admin: 06/23/19 10:02 Dose: 25 mg HOSPITAL COURSE: Date of Admission:06/22/19 Date of Discharge: 06/24/19 <Daryl Kramer - Last Filed: 06/24/19 08:44> Physical Exam: SUBJECTIVE: Patient seen and examined OBJECTIVE: Vital Signs Period Temp Pulse Resp BP Sys/Oleary Pulse Ox Last 24 Hr 97.5 F-98.4 F 64-91 18-20 119-154/59-83 98 PHYSICAL EXAM GENERAL: The patient is awake, alert, and fully oriented, in no acute distress. HEAD: Normal with no signs of trauma. EYES: PERRL, extraocular movements intact, sclera anicteric, conjunctiva clear. ENT: Ears normal, nares patent, oropharynx clear without exudates, moist mucous membranes. NECK: Trachea midline, full range of motion, supple. LUNGS: Breath sounds equal, clear to auscultation bilaterally, no wheezes, no crackles, no accessory muscle use. HEART: Regular rate and rhythm, S1, S2 without murmur, rub or gallop. ABDOMEN: Soft, nontender, nondistended, normoactive bowel sounds, no guarding, no rebound, no hepatosplenomegaly, no masses. EXTREMITIES: 2+ pulses, warm, well-perfused, no edema. NEUROLOGICAL: Cranial nerves II through XII grossly intact. Normal speech, gait not observed. PSYCH: Normal mood, normal affect. SKIN: Warm, dry, normal turgor, no rashes or lesions noted. LABS Laboratory Results - last 24 hr 06/24/19 05:22 Sodium 143 Potassium 4.1 Chloride 110 H Carbon Dioxide 28 Anion Gap 6 L BUN 34.5 H Creatinine 0.9 Est GFR (CKD-EPI)AfAm 67.10 Est GFR (CKD-EPI)NonAf 57.90 Random Glucose 115 H Calcium 8.6 HOSPITAL COURSE: Date of Admission:06/22/19 Date of Discharge: 06/24/19 <Dean Rubalcava - Last Filed: 06/24/19 10:02> Discharge Summary Problems reviewed: Yes Reason For Visit: UTI,SYNCOPE AND COLLAPSE,NECK PAIN Current Active Problems Fall (Acute) Syncope and collapse (Acute) UTI (urinary tract infection) (Acute) - Home Medications Comprehensive Discharge Medication List: Ambulatory Orders Alprazolam 0.25 mg PO HS PRN 10/16/18 Aspirin [Aspirin EC] 81 mg PO DAILY 10/16/18 Atorvastatin Calcium 10 mg PO ASDIR 10/16/18 Diltiazem Cd [Cardizem Cd -] 120 mg PO DAILY 10/16/18 Metoprolol Succinate 25 mg PO DAILY 10/16/18 Pantoprazole Sodium 40 mg PO PRN 10/16/18 Vitamin B Complex [B Complex] 1 tab PO DAILY 10/16/18 Calcium Carbonate/Vitamin D3 [Calcium 600-Vit D3 2,500 Sftgl] 2 each PO DAILY Cholecalciferol (Vitamin D3) [Vitamin D3] 1,000 unit PO DAILY 06/22/19 Latanoprost/Pf [Latanoprost 0.005% Eye Drop] 7.5 ml OP HS 06/22/19 Vit A/Vit C/Vit E/Zinc/Copper [Preservision Areds Softgel] 1 each PO BID <Daryl Kramer - Last Filed: 06/24/19 08:44> Current Active Problems Fall (Acute) Syncope and collapse (Acute) UTI (urinary tract infection) (Acute) - Home Medications Comprehensive Discharge Medication List: Ambulatory Orders Alprazolam 0.25 mg PO HS PRN 10/16/18 Aspirin [Aspirin EC] 81 mg PO DAILY 10/16/18 Atorvastatin Calcium 10 mg PO ASDIR 10/16/18 Diltiazem Cd [Cardizem Cd -] 120 mg PO DAILY 10/16/18 Metoprolol Succinate 25 mg PO DAILY 10/16/18 Pantoprazole Sodium 40 mg PO PRN 10/16/18 Vitamin B Complex [B Complex] 1 tab PO DAILY 10/16/18 Calcium Carbonate/Vitamin D3 [Calcium 600-Vit D3 2,500 Sftgl] 2 each PO DAILY Cholecalciferol (Vitamin D3) [Vitamin D3] 1,000 unit PO DAILY 06/22/19 Latanoprost/Pf [Latanoprost 0.005% Eye Drop] 7.5 ml OP HS 06/22/19 Vit A/Vit C/Vit E/Zinc/Copper [Preservision Areds Softgel] 1 each PO BID Acetaminophen [Tylenol .Regular Strength -] 650 mg PO Q4H PRN tablet 06/24/19 Brimonidine Tartrate [Alphagan 0.2% -] 1 drop OS BID drops 06/24/19 Dorzolamide HCl [Trusopt 2% -] 1 drop OS BID drops 06/24/19 Ibuprofen [Motrin -] 600 mg PO Q6H PRN tablet 06/24/19 Latanoprost 0.005% Eye Drops [Xalatan 0.005% Eye Drops -] 1 drop OD HS drops <Dean Rubalcava - Last Filed: 06/24/19 10:02> Condition: Stable - Instructions Diet, Activity, Other Instructions: You were seen here for your fall. Your heart was monitored and you had an echocardiogram which were all normal. You were visited by physical therapy who recommended you go to a rehab facility to become stronger. MEDICATIONS: Continue Cardizem 120mg daily Continue Aspirin 81mg daily Continue Toprol XL 25mg daily Contniue Lipitor 10mg M// HS Continue Motrin as needed for pain/aching 600mg Continue the following eye drops regiment: Brimonidine 0.2% TWICE daily in the L eye Dorzolamide 22.2mg-Timolol 6.8mg TWICE daily in the L eye Rhopressa 0.02% AT NIGHT L eye Vyzulta 0.024% AT NIGHT L eye Latanoprost 0.005% AT NIGHT R eye Follow-up: Please follow-up with Dr. Richards in 3-5 days to update them on your care Please follow-up with Dr. 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 I reviewed the resident's note and discussed the case with the resident. I agree with the resident's findings and plan as documented. SUBJECTIVE: OBJECTIVE: ASSESSMENT AND PLAN: <Daryl Kramer - Last Filed: 06/24/19 08:44> ATTENDING PHYSICIAN STATEMENT I saw and evaluated the patient. I reviewed the resident's note and discussed the case with the resident. I agree with the resident's findings and plan as documented. SUBJECTIVE: OBJECTIVE: ASSESSMENT AND PLAN: <Dean Rubalcava - Last Filed: 06/24/19 10:02>
[2019-06-24] MEDS: IBUPROFEN 600 MG TABLET (FP) PO PRN (09:58)
[2019-06-24] MEDS: metoPROLOL SUCCINATE 25 MG TAB.SR.24H (FP) PO SCH (09:59)
[2019-06-24] MEDS: ASPIRIN COATED 81 MG TABLET.EC PO SCH (09:59)
[2019-06-24] MEDS: BRIMONIDINE TARTRATE 0.2% OPHTHALMIC 5 ML BOTTLE OS SCH (10:00)
[2019-06-24] MEDS: DORZOLAMIDE 2% HCL OPHTHALMIC SOLUTION 10 ML BOTTLE OS SCH (10:00)
[2019-06-24 11:40] VITALS: BP 131/77; PULSE 64
== END 2019-06-24 11:45 | DRG 312 ==
LOC: JER 04:42 → JERBED 10:40 → J4W 13:31
PROVIDERS: ADMIT Internal Medicine; ATTEND Internal Medicine
DX: R55 Syncope and collapse (principal); N39.0 Urinary tract infection, site not specified; I10 Essential (primary) hypertension; E78.5 Hyperlipidemia, unspecified; I25.10 Atherosclerotic heart disease of native coronary artery without angina pectoris; M25.512 Pain in left shoulder
CPT/HCPCS: 36415; 70450-TC; 71045-TC-FY; 72125-TC; 72131-TC; 73030-TC-LT-FY; 73070-TC-LT-FY; 73523-TC-FY; 74177-TC; 80048; 80053; 81003; 82550; 83735; 84484; 85025; 85027; 87086; 93005; 93010; 93306-TC; 97116-GP; 97161-GP; 99284-25

== ENCOUNTER 2020-04-25 19:37 | Observation (INO) | payer BC, OTHER ==
[2020-04-25 19:50] VITALS: BMI 22.8
--- NOTE | 2020-04-25 19:50 | PDOC ---
History of Present Illness - General Stated Complaint: CHEST PAIN Time Seen by Provider: 04/25/20 19:49 - History of Present Illness Initial Comments: 89 yo female with PMH of htn, hld, cad, ND with LAD stent (2012), anxiety presents with chest pain. Pt says chest pain started 15 minutes ago, left sided, sharp, tender, worse with movement. She endorses shortness of breath. She denies delgado, fevers, chills, nvd. She follows with Dr. Richards (PCP) and Dr. Louis (Card). She denies any recent illness. No family hx of cardiac disease. No hx of smoking. Past History - Medical History Allergies/Adverse Reactions: Allergies Allergy/AdvReac Type Severity Reaction Status Date / Time codeine AdvReac Verified 04/25/20 19:50 Home Medications: Ambulatory Orders Alprazolam 0.25 mg PO HS PRN 10/16/18 Aspirin [Aspirin EC] 81 mg PO DAILY 10/16/18 Atorvastatin Calcium 10 mg PO ASDIR 10/16/18 Diltiazem Cd [Cardizem Cd -] 120 mg PO DAILY 10/16/18 Metoprolol Succinate 25 mg PO DAILY 10/16/18 Pantoprazole Sodium 40 mg PO PRN 10/16/18 Vitamin B Complex [B Complex] 1 tab PO DAILY 10/16/18 Calcium Carbonate/Vitamin D3 [Calcium 600-Vit D3 2,500 Sftgl] 2 each PO DAILY 06/22/19 Cholecalciferol (Vitamin D3) [Vitamin D3] 1,000 unit PO DAILY 06/22/19 Latanoprost/Pf [Latanoprost 0.005% Eye Drop] 7.5 ml OP HS 06/22/19 Vit A/Vit C/Vit E/Zinc/Copper [Preservision Areds Softgel] 1 each PO BID 06/22/19 Acetaminophen [Tylenol .Regular Strength -] 650 mg PO Q4H PRN tablet 06/24/19 Brimonidine Tartrate [Alphagan 0.2% -] 1 drop OS BID drops 06/24/19 Dorzolamide HCl [Trusopt 2% -] 1 drop OS BID drops 06/24/19 Ibuprofen [Motrin -] 600 mg PO Q6H PRN tablet 06/24/19 Latanoprost 0.005% Eye Drops [Xalatan 0.005% Eye Drops -] 1 drop OD HS drops 06/24/19 COPD: No HTN: Yes Hypercholesterolemia: Yes - Surgical History Appendectomy: Yes Cardiac Surgery: Yes (stent) Orthopedic Surgery: Yes (lt. hip rplacement) - Immunization History Immunization Up to Date: Yes - Psycho-Social/Smoking History Smoking History: Never smoked Review of Systems - Review of Systems Able to Perform ROS?: Yes Constitutional: No: Chills, Diaphoresis, Fever HEENTM: No: Recent change in vision, Double Vision Respiratory: No: Cough, Orthopnea, Shortness of Breath Cardiac (ROS): Yes: Chest Pain. No: Irregular Heart Rate, Palpitations, Syncope : No: Burning, Dysuria, Discharge Musculoskeletal: No: Joint Pain, Joint Stiffness Integumentary: No: Flushing, Lesions Neurological: Yes: Headache. No: Weakness Psychiatric: No: Anxiety, Depression, Mood Swings Endocrine: No: Intolerance to Cold, Intolerance to Heat, Unexplained Weight Gain Hematologic/Lymphatic: No: Anemia, Easy Bleeding, Easy Bruising *Physical Exam - Physical Exam General Appearance: Yes: Appropriately Dressed. No: Apparent Distress HEENT: positive: EOMI, Normal Voice Neck: negative: Tender, Rigid Respiratory/Chest: positive: Chest Tender (reproducible chest pain left of sternum.), Lungs Clear, Normal Breath Sounds. negative: Respiratory Distress Cardiovascular: positive: Regular Rhythm, Regular Rate, S1, S2. negative: Edema, JVD, Murmur Gastrointestinal/Abdominal: positive: Flat, Soft. negative: Tender Musculoskeletal: positive: Normal Inspection. negative: CVA Tenderness Extremity: positive: Normal Capillary Refill, Normal Inspection, Normal Range of Motion Integumentary: positive: Normal Color, Dry, Warm Neurologic: positive: Fully Oriented, Alert, Normal Mood/Affect ED Treatment Course - LABORATORY CBC & Chemistry Diagram: 04/25/20 21:15 04/25/20 21:15 Medical Decision Making - Medical Decision Making 89 yo female with PMH of HTN, HLD, CAD, ND (2011 w/ LAD stents), Anxiety pr esents with 15 minutes of reproducible chest pain. \ CBC wnl CMP wnl Coags normal Trop negative Given aspirin 324 Pt admitted to tele-obs 04/25/20 23:05 04/25/20 23:06 09/17/20 00:50 Discharge - Discharge Information Problems reviewed: Yes Clinical Impression/Diagnosis: Chest pain Qualifiers: Chest pain type: unspecified Qualified Code(s): R07.9 - Chest pain, unspecified Condition: Stable - Admission Yes - Follow up/Referral - Patient Discharge Instructions - Post Discharge Activity
--- OUTSIDE RECORDS SUMMARY | 2020-04-25 20:05 | XMS ---
:1930 Author Organization [facility] Support Name Relationship Address Phone RE Unavailable Unavailable Unavailable ELTON PRATER [address] PH [phone] [place] [address] ELTON PRATER Spouse [address] [place] [address] Re-disclosure Warning The records that you are about to access may contain information from federally- assisted alcohol or drug abuse programs. If such information is present, then the following federally mandated warning applies: This information has been disclosed to you from records protected by federal confidentiality rules (42 CFR part 2). The federal rules prohibit you from making any further disclosure of this information unless further disclosure is expressly permitted by the written consent of the person to whom it pertains or as otherwise permitted by 42 CFR part 2. A general authorization for the release of medical or other information is NOT sufficient for this purpose. The Federal rules restrict any use of the information to criminally investigate or prosecute any alcohol or drug abuse patient.The records that you are about to access may contain highly sensitive health information, the redisclosure of which is protected by Article 27-F of the [facility] Public Health law. If you continue you may haveaccess to information: Regarding HIV / AIDS; Provided by facilities licensed or operated by the [facility] Office of Mental Health; or Provided by the [facility] Office for People With Developmental Disabilities. If such information is present, then the following [facility] mandated warning applies: This information has been disclosed to you from confidential records which are protected by state law. State law prohibits you from making any further disclosure of this information without the specific written consent of the person to whom it pertains, or as otherwise permitted by law. Any unauthorized further disclosure in violation of state law may result in a fine or custodial sentence or both. A general authorization for the release of medical or other information is NOT sufficient authorization for further disclosure. Insurance Providers Payer name Policy type Policy ID Covered Covered constitution party's Policy P bishop / Coverage constitution party ID relationship to [place] [id number] SP [id number] [employer] 7 [facility] MEDICARE [id number] SP [id number] BLUE CROSS [id number] SP [id number] [facility] PLAN 7 BLUE CROSS [id number] [facility] 7
[2020-04-25] MEDS ORDERED: ASPIRIN COATED 81 MG TABLET.EC PO ONE (21:24)
--- NOTE | 2020-04-25 21:27 | PDOC ---
Documentation entered by Alivia Tracy SCRIBE, acting as scribe for Ade Vega MD. Ade Vega MD: This documentation has been prepared by the scribeDemarcus Ana, SCRIBE, under my direction and personally reviewed by me in its entirety. I confirm that the documentation accurately reflects all work, treatment, procedures, and medical decision making performed by me. Attending Attestation - Resident Resident Name: Ariel Murdock - ED Attending Attestation I have performed the following: I have examined & evaluated the patient, The case was reviewed & discussed with the resident, I agree w/resident's findings & plan, Exceptions are as noted - HPI HPI: 04/25/20 20:23 Patient is an 89 year old female with a significant past medical history of hypertension, hyperlipidemia, coronary artery disease, [place] with LAD stent (2012), and anxiety, who presents to the ED with chest pain since 15 minutes prior to ED arrival. Patient describes her pain as sharp, tender, worse with movement, and that it is more towards the left side. Patient endorses: SOB Patient denies: fever, chills, headache, nausea, vomiting, diarrhea, recent illness, smoking, or any other related symptoms. 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 Plan: -labs -cxr -asa -admit tele obs This clinical encounter is taking place during a federal and state health care emergency attributable to the novel Cuellar Virus pandemic. The [place] of the Department of Health and Human Services has declared, pursuant to the Public Health Service Act 319F-3 (42 U.S.C. 247d-6d), that a covered persons activities related to medical countermeasures against COVID-19 will be immune from liability under Federal and State law. Discharge - Discharge Information Problems reviewed: Yes Clinical Impression/Diagnosis: Chest pain Qualifiers: Chest pain type: unspecified Qualified Code(s): R07.9 - Chest pain, unspecified Condition: Stable - Follow up/Referral - Patient Discharge Instructions - Post Discharge Activity
[2020-04-25] MEDS ORDERED: ASPIRIN COATED 81 MG TABLET.EC ONE (21:46)
[2020-04-25 22:02] LABS: HEMATOCRIT 41.5 % (32.4-45.2); HEMOGLOBIN 13.9 GM/dL (10.7-15.3); MCH 30.3 pg (25.7-33.7); MCHC 33.4 g/dl (32.0-36.0); MEAN CELL VOLUME 90.5 fl (80-96); MEAN PLT VOLUME 9.5 fl (7.5-11.1); PLATELET COUNT 134 K/MM3 (134-434); RBC 4.58 M/mm3 (3.60-5.2); RDW 13.6 % (11.6-15.6)
[2020-04-25 22:16] LABS: INR 1.06 (0.83-1.09); PROTHROMBIN TIME (PATIENT) 12.5 SEC (9.7-13.0)
[2020-04-25 22:19] LABS: ACTIVATED PTT 31.1 SECONDS (25.2-36.5)
[2020-04-25 22:39] LABS: ALBUMIN 3.9 g/dl (3.4-5.0); ALK PHOS 111 U/L (45-117); ANION GAP 5 MMOL/L (8-16); BILIRUBIN,TOTAL 0.8 mg/dL (0.2-1); BLOOD UREA NITROGEN 22.1 mg/dL (7-18); CALCIUM 9.6 mg/dL (8.5-10.1); CHLORIDE 104 mmol/L (98-107); CO2 32 mmol/L (21-32); GLUCOSE,RANDOM 157 mg/dL (74-106); POTASSIUM 3.8 mmol/L (3.5-5.1); SGOT/AST 37 U/L (15-37); SGPT/ALT 22 U/L (13-61); SODIUM 142 mmol/L (136-145); TOT PROT 7.3 g/dl (6.4-8.2)
--- OUTSIDE RECORDS SUMMARY | 2020-04-25 23:17 | XMS ---
:1930 Author Organization [facility] Support Name Relationship Address Phone RE, RETIRED Unavailable Unavailable Unavailable RE Unavailable Unavailable Unavailable ELTON PRATER [address] PH [phone] [place] [address] ELTON PRATER Spouse [address] [place] [address] Re-disclosure Warning The records that you are [...] is protected by Article 27-F of the [facility] Public Health law. If you continue you may haveaccess to information: Regarding HIV / AIDS; Provided by facilities licensed or operated by the [facility] Office of Mental Health; or Provided by the [facility] Office for People With Developmental Disabilities. If such information is present, then the following [facility] mandated warning applies: This information has been [...] law may result in a fine or mcfp sentence or both. A general authorization for the release of medical or other information is NOT sufficient authorization for further disclosure. Insurance Providers Payer name Policy type Policy ID Covered Covered constitution party's Policy P bishop / Coverage constitution party ID relationship to [place] [id number] SP [id number] [employer] 7 [facility] MEDICARE [id number] SP [id number] JUAN RAMON LARA [id number] SP [id number] [facility] 7 BLUE CROSS [id number] SP [id number] [facility] 7
--- NOTE | 2020-04-25 23:18 | HP ---
CHIEF COMPLAINT: Chest Pain PCP: Bolivar Richards Solution Make Up Operator: Oliva HISTORY OF PRESENT ILLNESS: This is a 89 y/o female with a PMHx of CAD, [place] s/p LAD, HTN, HLD, GERD, OA. Placed in Telematry Observation r/o ACS for further evaluation of their emergent condition. Patient describes the pain as sharp- squeezing, non radiating, with SOB. Patient reports the pain increases with movement. Patient denies fever, chills, cough, dizziness, AP, N/V/D, constipation., dysuria. patient denies sick contact or recent travel ER course was notable for: (1)Troponin < 0.02 (2) EKG- SR with LBBB, no ST or TWI (3) BUN 22 Recent Travel: No PAST MEDICAL HISTORY: See HPI PAST SURGICAL HISTORY: See HPI Social History: Smoking: Never Alcohol: None Drugs: None Lives with her Allergies codeine Adverse Reaction (Verified 04/25/20 19:50) HOME MEDICATIONS: Home Medications Medication Instructions Recorded Alprazolam 0.25 mg PO HS PRN 10/16/18 Aspirin [Aspirin EC] 81 mg PO DAILY 10/16/18 Atorvastatin Calcium 10 mg PO ASDIR 10/16/18 Diltiazem Cd [Cardizem Cd -] 120 mg PO DAILY 10/16/18 Metoprolol Succinate 25 mg PO DAILY 10/16/18 Pantoprazole Sodium 40 mg PO PRN 10/16/18 Vitamin B Complex [B Complex] 1 tab PO DAILY 10/16/18 Calcium Carbonate/Vitamin D3 2 each PO DAILY 06/22/19 [Calcium 600-Vit D3 2,500 Sftgl] Cholecalciferol (Vitamin D3) 1,000 unit PO DAILY 06/22/19 [Vitamin D3] Latanoprost/Pf [Latanoprost 0.005% 7.5 ml OP HS 06/22/19 Eye Drop] Vit A/Vit C/Vit E/Zinc/Copper 1 each PO BID 06/22/19 [Preservision Areds Softgel] Acetaminophen [Tylenol .Regular 650 mg PO Q4H PRN tablet 06/24/19 Strength -] Brimonidine Tartrate [Alphagan 1 drop OS BID drops 06/24/19 0.2% -] Dorzolamide HCl [Trusopt 2% -] 1 drop OS BID drops 06/24/19 Ibuprofen [Motrin -] 600 mg PO Q6H PRN tablet 06/24/19 Latanoprost 0.005% Eye Drops 1 drop OD HS drops 06/24/19 [Xalatan 0.005% Eye Drops -] REVIEW OF SYSTEMS CONSTITUTIONAL: Absent: fever, chills, diaphoresis, generalized weakness, malaise, loss of appetite, weight change HEENT: Absent: rhinorrhea, nasal congestion, throat pain, throat swelling, difficulty swallowing, mouth swelling, ear pain, eye pain, visual changes CARDIOVASCULAR: chest pain Absent: syncope, palpitations, irregular heart rate, lightheadedness, peripheral edema RESPIRATORY: Absent: cough, shortness of breath, dyspnea with exertion, orthopnea, wheezing, stridor, hemoptysis GASTROINTESTINAL: Absent: abdominal pain, abdominal distension, nausea, vomiting, diarrhea, constipation, melena, hematochezia GENITOURINARY: Absent: dysuria, frequency, urgency, hesitancy, hematuria, flank pain, genital pain MUSCULOSKELETAL: Absent: myalgia, arthralgia, joint swelling, back pain, neck pain SKIN: Absent: rash, itching, pallor HEMATOLOGIC/IMMUNOLOGIC: Absent: easy bleeding, easy bruising, lymphadenopathy, frequent infections ENDOCRINE: Absent: unexplained weight gain, unexplained weight loss, heat intolerance, cold intolerance NEUROLOGIC: Absent: headache, focal weakness or paresthesias, dizziness, unsteady gait, seizure, mental status changes, bladder or bowel incontinence PSYCHIATRIC: anxiety Absent: anxiety, depression, suicidal or homicidal ideation, hallucinations. PHYSICAL EXAMINATION Vital Signs - 24 hr 04/25/20 19:44 Temperature 98.6 F Pulse Rate 73 Respiratory 17 Rate Blood Pressure 191/70 H O2 Sat by Pulse 98 Oximetry (%) GENERAL: Anxious, Awake, alert, and fully oriented, in no acute distress. HEAD: Normal with no signs of trauma. EYES: Pupils equal, round and reactive to light, extraocular movements intact, sclera anicteric, conjunctiva clear. No lid lag. EARS, NOSE, THROAT: Ears normal, nares patent, oropharynx clear without exudates. Moist mucous membranes. NECK: Normal range of motion, supple without lymphadenopathy, JVD, or masses. LUNGS: Breath sounds equal, clear to auscultation bilaterally. No wheezes, and no crackles. No accessory muscle use. HEART:Reproducible pain to midsternum, Regular rate and rhythm, normal S1 and S2 without murmur, rub or gallop. ABDOMEN: Soft, nontender, not distended, normoactive bowel sounds, no guarding, no rebound, no masses. No hepatomegaly or splenomegaly. MUSCULOSKELETAL: Normal range of motion at all joints. No bony deformities or tenderness. No CVA tenderness. UPPER EXTREMITIES: 2+ pulses, warm, well-perfused. No cyanosis. No clubbing. No peripheral edema. LOWER EXTREMITIES: 2+ pulses, warm, well-perfused. No calf tenderness. No peripheral edema. NEUROLOGICAL: Cranial nerves II-XII intact. Normal speech. Gait not observed. PSYCHIATRIC: Cooperative. Good eye contact. Appropriate mood and affect. SKIN: Warm, dry, normal turgor, no rashes or lesions noted, normal capillary refill. Laboratory Results - last 24 hr 04/25/20 04/25/20 04/25/20 21:15 21:15 21:15 WBC 7.0 RBC 4.58 Hgb 13.9 Hct 41.5 MCV 90.5 MCH 30.3 MCHC 33.4 RDW 13.6 Plt Count 134 MPV 9.5 D PT with INR 12.50 INR 1.06 PTT (Actin FS) 31.1 Sodium 142 Potassium 3.8 Chloride 104 Carbon Dioxide 32 Anion Gap 5 L BUN 22.1 H Creatinine 1.0 Est GFR (CKD-EPI)AfAm 58.66 Est GFR (CKD-EPI)NonAf 50.61 Random Glucose 157 H Calcium 9.6 Total Bilirubin 0.8 AST 37 ALT 22 Alkaline Phosphatase 111 Creatine Kinase 104 Troponin I < 0.02 Total Protein 7.3 Albumin 3.9 ASSESSMENT/PLAN: This is a 89 y/o woman with a PMHx of CAD, [place] (LAD stent, 2012), HTN. HLD, Anxiety. Placed in Telemetry Observation for Chest Pain r/o ACS for further evaluation of their emergent condition. Plan: See Problem List FEN PO fluids as tolerated Replete lytes prn Low Na Diet DVT ppx OOB SCDs Consider AC if LOS > 48hrs Dispo: Observation Family Medical History Family History: Unremarkable Problem List - Problem (1) Chest pain Assessment/Plan: r/o ACS vs Anxiety HEART Score 6 Cardiac monitoring Serial Enzymes negx1, will trend Appreciate Cardiology consult EKG- NSR with LBBB Chest Xray taken- unable to view image Asa Last Echo 06/2019 showed- lvsf-nl, rv nl, trace-mr, trace-tr Will defer Echo to human resource advisor Code(s): R07.9 - CHEST PAIN, UNSPECIFIED Qualifiers: Chest pain type: unspecified Qualified Code(s): R07.9 - Chest pain, unspecified (2) CAD (coronary artery disease) Assessment/Plan: s/p Stent Continue Asa, Metoprolol, Atorvastatin EKG reviewed- NSR with LBBB, new compared to prior tracing Monitor CMP Monitor vitals Code(s): I25.10 - ATHSCL HEART DISEASE OF [place] CORONARY ARTERY W/O ANG PCTRS (3) HTN (hypertension) Assessment/Plan: stable Monitor BP Continue home meds with parameters Monitor renal function Code(s): I10 - ESSENTIAL (PRIMARY) HYPERTENSION (4) HLD (hyperlipidemia) Assessment/Plan: stable Continue Lipitor Monitor LFTs Code(s): E78.5 - HYPERLIPIDEMIA, UNSPECIFIED (5) Encounter for screening laboratory testing for COVID-19 virus Assessment/Plan: Low Risk COVID PCR-pending Isolation Precautions Code(s): Z11.59 - ENCOUNTER FOR SCREENING FOR OTHER VIRAL DISEASES Visit type - Medication Review Med list reviewed for High Risk Meds patients 65 and older: Yes - Emergency Visit Emergency Visit: Yes ED Registration Date: 04/25/20 Care time: The patient presented to the Emergency Department on the above date and was hospitalized for further evaluation of their emergent condition. - New Patient This patient is new to me today: Yes Date on this admission: 04/25/20 - Critical Care Critical Care patient: No
[2020-04-26] MEDS: BRIMONIDINE TARTRATE 0.2% OPHTHALMIC 5 ML BOTTLE OS SCH ×3 (01:30→21:33)
[2020-04-26] MEDS: DORZOLAMIDE 2% HCL OPHTHALMIC SOLUTION 10 ML BOTTLE OS SCH ×3 (01:30→21:35)
[2020-04-26] MEDS: LATANOPROST 0.005% OPHTH SOLN 2.5ML BOTTLE OD SCH ×2 (01:30→21:34)
[2020-04-26 06:57] LABS: BASO % 0.8 % (0-2.0); EOS % 3.3 % (0-4.5); HEMOGLOBIN 13.3 GM/dL (10.7-15.3); MCH 29.8 pg (25.7-33.7); MCHC 33.4 g/dl (32.0-36.0); MEAN CELL VOLUME 89.3 fl (80-96); MEAN PLT VOLUME 8.9 fl (7.5-11.1); MONO % 9.7 % (3.8-10.2); NEUT % 63.2 % (42.8-82.8); PLATELET COUNT 127 K/MM3 (134-434); RBC 4.48 M/mm3 (3.60-5.2); RDW 13.4 % (11.6-15.6); WHITE BLOOD COUNT 5.3 K/mm3 (4.0-10.0)
[2020-04-26 07:29] LABS: ALBUMIN 3.6 g/dl (3.4-5.0); BILIRUBIN,TOTAL 0.9 mg/dL (0.2-1); BLOOD UREA NITROGEN 22.3 mg/dL (7-18); CALCIUM 9.1 mg/dL (8.5-10.1); CREATININE 0.9 mg/dL (0.55-1.3); MAGNESIUM 2.1 mg/dL (1.8-2.4); POTASSIUM 3.1 mmol/L (3.5-5.1); TOT PROT 6.5 g/dl (6.4-8.2)
[2020-04-26] MEDS ORDERED: ASPIRIN COATED 81 MG TABLET.EC ONE (09:00)
[2020-04-26] MEDS ORDERED: PANTOPRAZOLE 40 MG TABLET ONE (09:00)
[2020-04-26] MEDS ORDERED: metoPROLOL SUCCINATE 25 MG TAB.SR.24H (FP) ONE (09:01)
[2020-04-26] MEDS ORDERED: POTASSIUM CITRATE/CITRIC ACID 2 MEQ/ML ML PO ONE (09:14)
[2020-04-26] MEDS ORDERED: POTASSIUM CHLORIDE ORAL LIQUID 20 MEQ/15 ML ONE ×2 (09:25→09:48)
[2020-04-26] MEDS: KCL 10 MEQ IVPB 10 MEQ/100 ML INFUS.BAG IVPB SCH ×4 (09:42→11:27)
[2020-04-26] MEDS: ASPIRIN COATED 81 MG TABLET.EC PO SCH (09:42)
[2020-04-26] MEDS: PANTOPRAZOLE 40 MG TABLET PO SCH (09:42)
[2020-04-26] MEDS: metoPROLOL SUCCINATE 25 MG TAB.SR.24H (FP) PO SCH (09:43)
[2020-04-26] MEDS ORDERED: POTASSIUM CHLORIDE TABS 20 MEQ TABLET.ER (FP) PO ONE (09:45)
[2020-04-26] MEDS ORDERED: KCL 10 MEQ IVPB 30 MEQ/300 ML INFUS.BAG IVPB ONE (09:48)
--- NOTE | 2020-04-26 09:53 | EKG ---
Test Reason : Blood Pressure : / mmHG Vent. Rate : 070 BPM Atrial Rate : 070 BPM P-R Int : 184 ms QRS Dur : 128 ms QT Int : 428 ms P-R-T Axes : 063 -19 079 degrees QTc Int : 462 ms POOR DATA QUALITY, INTERPRETATION MAY BE ADVERSELY AFFECTED NORMAL SINUS RHYTHM LEFT BUNDLE BRANCH BLOCK ABNORMAL ECG WHEN COMPARED WITH ECG OF 22-JUN-2019 05:54, PREMATURE VENTRICULAR COMPLEXES ARE NO LONGER PRESENT LEFT BUNDLE BRANCH BLOCK IS NOW PRESENT CRITERIA FOR ANTEROSEPTAL INFARCT ARE NO LONGER PRESENT CRITERIA FOR INFERIOR INFARCT ARE NO LONGER PRESENT Confirmed by CRISTOBAL MOHAN MD ([id number]) on 04/26/2020 9:52:50 AM Referred By: Confirmed By:CRISTOBAL MOHAN MD
[2020-04-26] MEDS ORDERED: PATIENT'S OWN MEDICATION (NON-FORMULARY) (Vit A/Vit C/Vit E/Zinc/Copper [Preservision Ared PO SCH (10:00)
--- NOTE | 2020-04-26 11:19 | CON.CARD ---
Consult Consult Specialty:: Cardiology Referred by:: Dr. Kumar Reason for Consultation:: Chest pain - History of Present Illness Chief Complaint: Chest pain History of Present Illness: 89 yuear-old woman with a PMHx of HTN, hyperlipidemia, CAD, [place] s/p LAD stent 2012, anxiety, GERD, OA presented to ED on 04/25/20 with chest pain. She developed chest pain 15 minutes prior to ED arrival. Patient describes her pain located in the left lower sternal border, as sharp, tender, worse with movement, and that it is more towards the left side. She denies associated SOB, palpitation, diaphoresis, dizziness, syncope or near syncope. [place] ruled out. ECG 04/25/2020 showed sinus rhythm at 70 BPM. LBBB. The patient was seen in Cardiology nuclear laboratory. Resting nuclear stress test performed. Stress portion will be done tomorrow. - History Source History Provided By: Patient, Medical Record Limitations to Obtaining History: No Limitations - Past Medical History ...: No - Alcohol/Substance Use Hx Alcohol Use: No - Smoking History Smoking history: Never smoked Home Medications - Allergies Allergies/Adverse Reactions: Allergies Allergy/AdvReac Type Severity Reaction Status Date / Time codeine AdvReac Verified 04/25/20 19:50 - Home Medications Home Medications: Ambulatory Orders Aspirin [Aspirin EC] 81 mg PO DAILY 10/16/18 Atorvastatin Calcium 10 mg PO ASDIR 10/16/18 Metoprolol Succinate 25 mg PO DAILY 10/16/18 Pantoprazole Sodium 40 mg PO PRN 10/16/18 Vitamin B Complex [B Complex] 1 tab PO DAILY 10/16/18 Calcium Carbonate/Vitamin D3 [Calcium 600-Vit D3 2,500 Sftgl] 2 each PO DAILY 06/22/19 Cholecalciferol (Vitamin D3) [Vitamin D3] 1,000 unit PO DAILY 06/22/19 Latanoprost/Pf [Latanoprost 0.005% Eye Drop] 7.5 ml OP HS 06/22/19 Vit A/Vit C/Vit E/Zinc/Copper [Preservision Areds Softgel] 1 each PO BID 06/22/19 Brimonidine Tartrate [Alphagan 0.2% -] 1 drop OS BID drops 06/24/19 Dorzolamide HCl [Trusopt 2% -] 1 drop OS BID drops 06/24/19 Latanoprost 0.005% Eye Drops [Xalatan 0.005% Eye Drops -] 1 drop OD HS drops 06/24/19 Netarsudil Mesylate [Rhopressa] 0 ml OP HS 04/26/20 Review of Systems - Review of Systems Constitutional: reports: No Symptoms Eyes: reports: No Symptoms HENT: reports: No Symptoms Neck: reports: No Symptoms Cardiovascular: reports: Chest Pain Respiratory: reports: No Symptoms Gastrointestinal: reports: No Symptoms Genitourinary: reports: No Symptoms Breasts: reports: No Symptoms Reported Musculoskeletal: reports: Extremity Pain, Joint Pain, Muscle Pain Integumentary: reports: No Symptoms Neurological: reports: No Symptoms Endocrine: reports: No Symptoms Vital Signs: Vital Signs Temperature 98.7 F 04/26/20 10:00 Pulse Rate 62 04/26/20 10:00 Respiratory Rate 18 04/26/20 10:00 Blood Pressure 148/84 04/26/20 10:00 O2 Sat by Pulse Oximetry (%) 99 04/26/20 10:00 General: Well developed. Well nourished. No acute distress. Head: Normocephalic. Atraumatic, Eyes: PERRLA, EOMI. Sclerae anicteric. Conjunctivae clear. Neck: Supple. No JVD. No bruits. Heart: Normal S1, S2: Regular rhythm and rate. No murmur. No gallop or rub. Lungs: Symmetrical air entry. Clear to auscultation. No crackle. No wheezing or rhonchi. Abdomen: Soft. Bowel sound positive. Non tender. No masses. Extremities: No edema. No clubbing or cyanosis. PD 2+, equal bilaterally. Neuro: Intact, no focal findings. AAO X3 - Other Data Labs, Other Data: CBC, BMP 04/26/20 06:08 04/26/20 06:08 INR, PTT INR 1.06 (0.83-1.09) 04/25/20 21:15 Troponin, BNP 04/25/20 04/26/20 04/26/20 21:15 03:20 06:08 Troponin I < 0.02 0.03 0.02 Troponin, BNP 04/25/20 04/26/20 04/26/20 21:15 03:20 06:08 Troponin I < 0.02 0.03 0.02 Imaging - Results EKG: Image Reviewed (ECG 04/25/2020 showed sinus rhythm at 70 BPM. LBBB.) Assessment/Plan 89 yuear-old woman with a PMHx of HTN, hyperlipidemia, CAD, [place] s/p LAD stent 2012, anxiety, GERD, OA presented to ED on 04/25/20 with chest pain with left ower sternal border tenderness. NV ruled out. ECG 04/25/2020 showed sinus rhythm at 70 BPM. LBBB. Atypical chest pain with history of CAD, [place] s/p LAD stent in 2012. NV ruled out. ECG is uninterpretable for ischemia due to LBBB. Nuclear stress test is in process, will follow the final report tomorrow. Continue aspirin, atorvastatin and metoprolol. We will follow the patient.
--- NOTE | 2020-04-26 14:02 | PN ---
Teaching Attending Note Name of Resident: Ferny Camara ATTENDING PHYSICIAN STATEMENT I saw and evaluated the patient. I reviewed the resident's note and discussed the case with the resident. I agree with the resident's findings and plan as documented. SUBJECTIVE: No fever or chills, no SOB. No ARREOLA. CP has resolved. she describes CP as sharp squeezing pain in retrosternal area that started during rest yesterday, and lasted for few min but recurred few times. OBJECTIVE: NAd, awake, alert, pleasant. MMM CV: RRR, no MRG Lungs: CTAB Ext: No edema or erythema on upper or lower extremities Abd:soft, NT, Nd , NL BS MS: TTP over a small area on anterior L shoulder ASSESSMENT AND PLAN: 89 y/o lady with h/o CAD, [place] s/p LAD, HTN, HLD, GERD, OA. She presented with CP . 1- CP : description could be concerning for unstable angina. less likley MS or anxiety. Now CP resolved. - EKG reviewed. sinaus with LBBB ( present in 05/28). Nl trop x 3. - order a stress test . will d/w card - cont ASa, statin, and BB - card consult pending Recs. - tele monitoring 2- HTN: cont metoprolol. elevated BP noted on arrival, normalized since 3- HLP: cont statin 4- hypokalemia : replete K 5- Start SQ heparin for DVT Px
[2020-04-26] MEDS: HEPARIN NA (PORCINE) 5,000 UNITS/ML 1ML VIAL SQ SCH ×2 (14:33→21:32)
--- NOTE | 2020-04-26 14:44 | PN ---
Physical Exam: SUBJECTIVE: Patient seen and examined at bedside. No acute events reported overnight. OBJECTIVE: Vital Signs Period Temp Pulse Resp BP Sys/Oleary Pulse Ox Last 24 Hr 97.5 F-98.7 F 58-90 16-20 144-191/50-85 95-99 GENERAL: AAOx3, in no acute distress HEENT: NCAT, PERRLA, EOMI, sclera anicteric, conjunctiva clear, oropharynx clear w/o exudates. MMM. NECK: Normal ROM, supple, no lymphadenopathy, JVD, or masses LUNGS: CTABL no wheezes/ rhonchi/ rales. No distress, speaks in full sentences. No increased work of breathing. HEART: RRR, normal S1 S2, no M/R/G, peripheral pulses 2+ and equal b/l ABDOMEN: Soft, NTND, + BS. No guarding or rebound. No hepatomegaly or splenomegaly. MSK: ROM WNL EXTREMITIES: Normal inspection. No peripheral edema. No clubbing or cyanosis. NEUROLOGICAL: CN II-XII intact. Normal speech, normal gait, no focal sensorimotor deficits. SKIN: Warm, Dry, normal turgor, no rashes or lesions noted Laboratory Results - last 24 hr CBC, BMP 04/26/20 06:08 04/26/20 06:08 04/25/20 04/25/20 04/25/20 21:15 21:15 21:15 WBC 7.0 RBC 4.58 Hgb 13.9 Hct 41.5 MCV 90.5 MCH 30.3 MCHC 33.4 RDW 13.6 Plt Count 134 MPV 9.5 D Absolute Neuts (auto) Neutrophils % Lymphocytes % Monocytes % Eosinophils % Basophils % Nucleated RBC % PT with INR 12.50 INR 1.06 PTT (Actin FS) 31.1 Sodium 142 Potassium 3.8 Chloride 104 Carbon Dioxide 32 Anion Gap 5 L BUN 22.1 H Creatinine 1.0 Est GFR (CKD-EPI)AfAm 58.66 Est GFR (CKD-EPI)NonAf 50.61 Random Glucose 157 H Calcium 9.6 Magnesium Total Bilirubin 0.8 AST 37 ALT 22 Alkaline Phosphatase 111 Creatine Kinase 104 Troponin I < 0.02 Total Protein 7.3 Albumin 3.9 TSH 04/26/20 04/26/20 04/26/20 03:20 06:08 06:08 WBC 5.3 RBC 4.48 Hgb 13.3 Hct 40.0 MCV 89.3 MCH 29.8 MCHC 33.4 RDW 13.4 Plt Count 127 L MPV 8.9 Absolute Neuts (auto) 3.4 Neutrophils % 63.2 Lymphocytes % 23.0 D Monocytes % 9.7 Eosinophils % 3.3 Basophils % 0.8 Nucleated RBC % 0 PT with INR INR PTT (Actin FS) Sodium 142 Potassium 3.1 L Chloride 105 Carbon Dioxide 32 Anion Gap 5 L BUN 22.3 H Creatinine 0.9 Est GFR (CKD-EPI)AfAm 66.63 Est GFR (CKD-EPI)NonAf 57.49 Random Glucose 99 Calcium 9.1 Magnesium 2.1 Total Bilirubin 0.9 AST 24 ALT 18 Alkaline Phosphatase 98 Creatine Kinase Troponin I 0.03 0.02 Total Protein 6.5 Albumin 3.6 TSH 2.34 Active Medications Generic Name Dose Route Start Last Admin Trade Name Freq PRN Reason Stop Dose Admin Aspirin 81 mg 04/26/20 10:00 04/26/20 09:42 Ecotrin - PO 81 mg DAILY LUIS ALBERTO Administration Atorvastatin Calcium 10 mg 04/27/20 22:00 Lipitor - PO MoWeFr@2200 LUIS ALBERTO Brimonidine Tartrate 1 drop 04/26/20 00:14 04/26/20 10:02 Alphagan 0.2% - OS 1 drop BID LUIS ALBERTO Administration Chlorthalidone 25 mg 04/27/20 10:00 Hygroton - PO MOWEFR@1000 LUIS ALBERTO Dorzolamide HCl 1 drop 04/26/20 00:15 04/26/20 10:02 Trusopt 2% OS 1 drop BID LUIS ALBERTO Administration Heparin Sodium (Porcine) 5,000 unit 04/26/20 14:00 04/26/20 14:33 Heparin - SQ Not Given TID LUIS ALBERTO Latanoprost 1 drop 04/26/20 00:14 04/26/20 01:30 Xalatan 0.005% Eye Drops - OD 1 drop HS LUIS ALBERTO Administration Metoprolol Succinate 12.5 mg 04/26/20 10:00 04/26/20 09:43 Toprol Xl - PO 12.5 mg DAILY LUIS ALBERTO Administration Non-Formulary Medication 1 each 04/26/20 10:00 Vit A/Vit C/Vit E/Zinc/Copper [Preservision Areds Softgel] PO BID LUIS ALBERTO Pantoprazole Sodium 40 mg 04/26/20 10:00 04/26/20 09:42 Protonix - PO 40 mg DAILY LUIS ALBERTO Administration ASSESSMENT/PLAN: 89 yo Female with a PMHx of HTN, hyperlipidemia, CAD, [place] s/p LAD stent 2012, Sarcoidosis, anxiety, GERD, OA presenting with chest pain. 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; EKG in 07/28 shows LBBB -optimize patient for stress test tm and NPO at midnight #HTN -c/w metoprolol - monitor BP readings #HLD -c/w statin #hypokalemia -repleted K -repeat BMP for the morning -continue to monitor K #GERD -Protonix 40 mg DAILY #FEN -no standing fluids -monitor lytes; replete PRN -NPO at midnight for stress test tm #Ppx DVT:SQ heparin Visit type - Emergency Visit Emergency Visit: No - New Patient This patient is new to me today: Yes Date on this admission: 04/26/20 - Critical Care Critical Care patient: No - Discharge Referral Referred to [facility] Med P.C.: No - Medication Review Med list reviewed for High Risk Meds patients 65 and older: Yes ATTENDING PHYSICIAN STATEMENT I saw and evaluated the patient. I reviewed the resident's note and discussed the case with the resident. I agree with the resident's findings and plan as documented. SUBJECTIVE: OBJECTIVE: ASSESSMENT AND PLAN:
[2020-04-26] MEDS ORDERED: CHOLECALCIFEROL (VIT D3) 1,000 UNIT (25 MCG) TABLET PO SCH (16:30)
[2020-04-26] MEDS: VITAMIN B COMP W-C 1 EA TABLET (NEPHRO-VITE) PO SCH (17:09)
[2020-04-26] MEDS ORDERED: NETARSUDIL MESYLATE OP SCH (22:00)
[2020-04-26] MEDS ORDERED: PATIENT'S OWN MEDICATION (NON-FORMULARY) (Latanoprost/Pf [Latanoprost 0.005% Eye Drop] 7.5 OP SCH (22:00)
[2020-04-27] MEDS: HEPARIN NA (PORCINE) 5,000 UNITS/ML 1ML VIAL SQ SCH ×4 (06:25→21:29)
[2020-04-27 07:30] LABS: BASO % 0.6 % (0-2.0); EOS % 2.3 % (0-4.5); HEMATOCRIT 39.8 % (32.4-45.2); HEMOGLOBIN 13.3 GM/dL (10.7-15.3); LYMPH % 19.3 % (8-40); MCH 30.1 pg (25.7-33.7); MCHC 33.3 g/dl (32.0-36.0); MEAN CELL VOLUME 90.2 fl (80-96); MEAN PLT VOLUME 8.6 fl (7.5-11.1); NEUT % 70.8 % (42.8-82.8); PLATELET COUNT 140 K/MM3 (134-434); RBC 4.41 M/mm3 (3.60-5.2); RDW 13.6 % (11.6-15.6); WHITE BLOOD COUNT 6.6 K/mm3 (4.0-10.0)
[2020-04-27 08:04] LABS: CHLORIDE 104 mmol/L (98-107); POTASSIUM 3.7 mmol/L (3.5-5.1); SODIUM 139 mmol/L (136-145)
[2020-04-27 08:21] LABS: ANION GAP 5 MMOL/L (8-16); CALCIUM 9.4 mg/dL (8.5-10.1); CO2 30 mmol/L (21-32); CREATININE 1.1 mg/dL (0.55-1.3); GLUCOSE,RANDOM 125 mg/dL (74-106)
[2020-04-27] MEDS ORDERED: CHLORTHALIDONE 25 MG TABLET PO SCH (10:00)
[2020-04-27] MEDS ORDERED: REGADENOSON 0.4 MG/5 ML PRE-FILLED SYRINGE IVPUSH ONE ×2 (10:00→10:15)
[2020-04-27] MEDS ORDERED: VITAMIN B COMPLEX PO SCH (10:00)
--- NOTE | 2020-04-27 10:21 | PN ---
Progress Note, Physician Chief Complaint: The patient appears comfortable at the time of exam. She has reduced left sided chest pain. No shortness of breath or palpitation. Telemetry record reviewed. It shows sinus rhythm with episodes of sinus tachycardia, up to 130s. Frequent APCs and VPCs noted. History of Present Illness: 89 yuear-old woman with a PMHx of HTN, hyperlipidemia, CAD, [place] s/p LAD stent 2012, anxiety, GERD, OA presented to ED on 04/25/20 with chest pain. She developed chest pain 15 minutes prior to ED arrival. Patient describes her pain located in the left lower sternal border, as sharp, tender, worse with movement, and that it is more towards the left side. She denies associated SOB, palpitation, diaphoresis, dizziness, syncope or near syncope. [place] ruled out. ECG 04/25/2020 showed sinus rhythm at 70 BPM. LBBB. Regadenoson nuclear stress test 04/27/20 showed moderate size, predominantly f ixed defect in the anteroapical wall, c/w prior infarct with mild ruben-infarct ischemia. A separate moderate size, mild to moderate severity stress induced ischemia in the inferoapical wall. TID = 1.28. Gated study revealed septal motion abnormaliy c/w LBBB and inferior wall hypokinesis. LVEF 50%. - Current Medication List Current Medications: Active Medications Aspirin (Ecotrin -) 81 mg PO DAILY [facility] Last Admin: 04/26/20 09:42 Dose: 81 mg Documented by: Atorvastatin Calcium (Lipitor -) 10 mg PO MoWeFr@2200 [facility] Brimonidine Tartrate (Alphagan 0.2% -) 1 drop OS BID [facility] Last Admin: 04/26/20 21:33 Dose: 1 drop Documented by: Calcium Carbonate/Cholecalciferol (Os-Vahe 500+D -) 2 tab PO DAILY [facility] Chlorthalidone (Hygroton -) 25 mg PO MOWEFR@1000 [facility] Cholecalciferol (Vitamin D3 -) 1,000 unit PO DAILY [facility] Dorzolamide HCl (Trusopt 2%) 1 drop OS BID [facility] Last Admin: 04/26/20 21:35 Dose: 1 drop Documented by: Heparin Sodium (Porcine) (Heparin -) 5,000 unit SQ TID [facility] Last Admin: 04/27/20 06:25 Dose: Not Given Documented by: Latanoprost (Xalatan 0.005% Eye Drops -) 1 drop OD HS [facility] Last Admin: 04/26/20 21:34 Dose: 1 drop Documented by: Metoprolol Succinate (Toprol Xl -) 12.5 mg PO DAILY [facility] Last Admin: 04/26/20 09:43 Dose: 12.5 mg Documented by: Multivit/Ca Carb/B Cmplx/FA/Prenat (Nephro-Eula -) 1 tablet PO DAILY [facility] Last Admin: 04/26/20 17:09 Dose: 1 tablet Documented by: Non-Formulary Medication (Vit A/Vit C/Vit E/Zinc/Copper [Preservision Areds Softgel]) 1 each PO BID [facility] Non-Formulary Medication (Netarsudil Mesylate [Rhopressa]) 1 ml OP HS [facility] Pantoprazole Sodium (Protonix -) 40 mg PO DAILY [facility] Last Admin: 04/26/20 09:42 Dose: 40 mg Documented by: - Objective Vital Signs: Vital Signs Temperature 97.9 F 04/27/20 05:00 Pulse Rate 67 04/27/20 05:00 Respiratory Rate 20 04/27/20 05:00 Blood Pressure 142/64 04/27/20 05:00 O2 Sat by Pulse Oximetry (%) 93 L 04/27/20 00:00 General: Well developed. Well nourished. No acute distress. Head: Normocephalic. Atraumatic, Eyes: PERRLA, EOMI. Sclerae anicteric. Conjunctivae clear. Neck: Supple. No JVD. No bruits. Heart: Normal S1, S2: Regular rhythm and rate. No murmur. No gallop or rub. Lungs: Symmetrical air entry. Clear to auscultation. No crackle. No wheezing or rhonchi. Abdomen: Soft. Bowel sound positive. Non tender. No masses. Extremities: No edema. No clubbing or cyanosis. PD 2+, equal bilaterally. Neuro: Intact, no focal findings. AAO X3 Labs: CBC, BMP 04/27/20 06:48 04/27/20 06:48 INR, PTT INR 1.06 (0.83-1.09) 04/25/20 21:15 Assessment/Plan 89 yuear-old woman with a PMHx of HTN, hyperlipidemia, CAD, [place] s/p LAD stent 2012, anxiety, GERD, OA presented to ED on 04/25/20 with chest pain. She developed chest pain 15 minutes prior to ED arrival. Patient describes her pain located in the left lower sternal border, as sharp, tender, worse with movement, and that it is more towards the left side. She denies associated SOB, palpitation, diaphoresis, dizziness, syncope or near syncope. [place] ruled out. ECG 04/25/2020 showed sinus rhythm at 70 BPM. LBBB. Regadenoson nuclear stress test 04/27/20 showed moderate size, predominantly fixed defect in the anteroapical wall, c/w prior infarct with mild ruben-infarct ischemia. A separate moderate size, mild to moderate severity stress induced ischemia in the inferoapical wall. TID = 1.28. Gated study revealed septal motion abnormaliy c/w LBBB and inferior wall hypokinesis. LVEF 50%. Atypical chest pain with history of CAD, [place] s/p LAD stent in 2012. [place] ruled out. ECG is uninterpretable for ischemia due to LBBB. Regadenoson nuclear stress test 04/27/20 showed moderate size, predominantly fixed defect in the anteroapical wall with mild ruben-infarct ischemia and a separate moderate size, mild to moderate severity stress induced ischemia in the inferoapical wall. TID = 1.28 I discussed the options of her care with the patient and her son, Scott. They prefer to further evaluation by cardiac catheterization and possible angioplasty. The procedure will be performed at [facility] on 04/30/2020. Please keep the patient NPO after midnight on Thursday. The patient will be transferred to [facility] Thursday morning. Increase metoprolol succinate to 50 mg daily and atorvastatin to 20 mg daily. Continue aspirin. Continue tele. We will follow the patient.
[2020-04-27] MEDS: BRIMONIDINE TARTRATE 0.2% OPHTHALMIC 5 ML BOTTLE OS SCH ×2 (12:55→21:19)
[2020-04-27] MEDS: CALCIUM 500MG/VIT-D 200 UNITS COMBO TABLET (FP) PO SCH (12:56)
[2020-04-27] MEDS: DORZOLAMIDE 2% HCL OPHTHALMIC SOLUTION 10 ML BOTTLE OS SCH ×2 (12:56→21:19)
[2020-04-27] MEDS: ASPIRIN COATED 81 MG TABLET.EC PO SCH (12:57)
[2020-04-27] MEDS: PANTOPRAZOLE 40 MG TABLET PO SCH (12:57)
[2020-04-27] MEDS: VITAMIN B COMP W-C 1 EA TABLET (NEPHRO-VITE) PO SCH (12:57)
[2020-04-27] MEDS: metoPROLOL SUCCINATE 25 MG TAB.SR.24H (FP) PO SCH (12:57)
[2020-04-27] MEDS: CHOLECALCIFEROL (VIT D3) 1,000 UNIT (25 MCG) TABLET PO SCH (12:59)
--- NOTE | 2020-04-27 14:53 | PN ---
Teaching Attending Note Name of Resident: Ferny Camara ATTENDING PHYSICIAN STATEMENT I saw and evaluated the patient. I reviewed the resident's note and discussed the case with the resident. I agree with the resident's findings and plan as documented. SUBJECTIVE: no fever or chills. No CP now, but had one tightness earlier after card eval. i t resolved. she was advised to inform Md/RN when cp is present OBJECTIVE: NAD ,awake, alert, cooperative CV: RRR Lungs: CTAB ext : No edema or erythema on legs or arms ASSESSMENT AND PLAN: 89 y/o lady with h/o CAD, [place] s/p LAD, HTN, HLD, GERD, OA. She presented with CP . 1- CP / unstable angina : stress test results reviewed. - cont ASa, statin, and BB - card cath on Thursday - cont tele monitoring 2- HTN: cont metoprolol. can add ACEI/ARB if needed 3- HLP: cont statin 4- SQ heparin for DVT Px dispo : Transfer to [facility] on Thursday am
--- NOTE | 2020-04-27 17:05 | PN ---
Physical Exam: SUBJECTIVE: Patient seen and examined at bedside. No acute events reported overnight. OBJECTIVE: Vital Signs Period Temp Pulse Resp BP Sys/Oleary Pulse Ox Last 24 Hr 97.6 F-97.9 F 67-77 18-20 129-159/64-82 93-94 GENERAL: AAOx3, in no acute distress HEENT: NCAT, PERRLA, EOMI, sclera anicteric, conjunctiva clear, oropharynx clear w/o exudates. MMM. NECK: Normal ROM, supple, no lymphadenopathy, JVD, or masses LUNGS: CTABL no wheezes/ rhonchi/ rales. No distress, speaks in full sentences. No increased work of breathing. HEART: RRR, normal S1 S2, no M/R/G, peripheral pulses 2+ and equal b/l ABDOMEN: Soft, NTND, + BS. No guarding or rebound. No hepatomegaly or splenomegaly. MSK: ROM WNL EXTREMITIES: Normal inspection. No peripheral edema. No clubbing or cyanosis. NEUROLOGICAL: CN II-XII intact. Normal speech, normal gait, no focal sensorimotor deficits. SKIN: Warm, Dry, normal turgor, no rashes or lesions noted Laboratory Results - last 24 hr CBC, BMP 04/27/20 06:48 04/27/20 06:48 04/25/20 04/27/20 04/27/20 WBC 6.6 RBC 4.41 Hgb 13.3 Hct 39.8 MCV 90.2 MCH 30.1 MCHC 33.3 RDW 13.6 Plt Count 140 MPV 8.6 Absolute Neuts (auto) 4.7 Neutrophils % 70.8 Lymphocytes % 19.3 Monocytes % 7.0 Eosinophils % 2.3 Basophils % 0.6 Nucleated RBC % 0 Sodium 139 Potassium 3.7 Chloride 104 Carbon Dioxide 30 Anion Gap 5 L BUN 31.0 H Creatinine 1.1 Est GFR (CKD-EPI)AfAm 52.28 Est GFR (CKD-EPI)NonAf 45.11 Random Glucose 125 H Calcium 9.4 Creatine Kinase 71 Troponin I < 0.02 COVID-19 (DAWIT) Not detected Active Medications Generic Name Dose Route Start Last Admin Trade Name Freq PRN Reason Stop Dose Admin Aspirin 81 mg 04/26/20 10:00 04/27/20 12:57 Ecotrin - PO 81 mg DAILY LUIS ALBERTO Administration Atorvastatin Calcium 10 mg 04/27/20 22:00 Lipitor - PO MoWeFr@2200 [facility] Brimonidine Tartrate 1 drop 04/26/20 00:14 04/27/20 12:55 Alphagan 0.2% - OS 1 drop BID LUIS ALBERTO Administration Calcium Carbonate/Cholecalciferol 2 tab 04/27/20 10:00 04/27/20 12:56 Os-Vahe 500+D - PO 2 tab DAILY LUIS ALBERTO Administration Chlorthalidone 25 mg 04/27/20 10:00 04/27/20 12:57 Hygroton - PO 25 mg MOWEFR@1000 LUIS ALBERTO Administration Cholecalciferol 1,000 unit 04/27/20 10:00 04/27/20 12:59 Vitamin D3 - PO 1,000 unit DAILY LUIS ALBERTO Administration Dorzolamide HCl 1 drop 04/26/20 00:15 04/27/20 12:56 Trusopt 2% OS 1 drop BID LUIS ALBERTO Administration Heparin Sodium (Porcine) 5,000 unit 04/26/20 14:00 04/27/20 13:34 Heparin - SQ 5,000 unit TID LUIS ALBERTO Administration Latanoprost 1 drop 04/26/20 00:14 04/26/20 21:34 Xalatan 0.005% Eye Drops - OD 1 drop HS LUIS ALBERTO Administration Metoprolol Succinate 12.5 mg 04/26/20 10:00 04/27/20 12:57 Toprol Xl - PO 12.5 mg DAILY LUIS ALBERTO Administration Multivit/Ca Carb/B Cmplx/FA/Prenat 1 tablet 04/26/20 16:30 04/27/20 12:57 Nephro-Eula - PO 1 tablet DAILY LUIS ALBERTO Administration Non-Formulary Medication 1 ml 04/26/20 22:00 Netarsudil Mesylate [Rhopressa] OP HS LUIS ALBERTO Pantoprazole Sodium 40 mg 04/26/20 10:00 04/27/20 12:57 Protonix - PO 40 mg DAILY LUIS ALBERTO Administration ASSESSMENT/PLAN: 89 yo Female with a PMHx of HTN, hyperlipidemia, CAD, [place] s/p LAD stent 2012, Sarcoidosis, anxiety, GERD, OA presenting with chest pain. Admitted for chest pain #Chest Pain -Regadenoson nuclear stress test 04/27/20 showed: 1) moderate size, predominantly fixed defect in the anteroapical wall, c/w prior infarct with mild ruben-infarct ischemia. 2) A separate moderate size, mild to moderate severity stress induced ischemia in the inferoapical wall. TID = 1.28. 3) Gated study revealed septal motion abnormaliy c/w LBBB and inferior wall hypokinesis. LVEF 50%. -discussed stress test results with Dr. Bernabe and a decision was made to do a cardio to cardio transfer the patient to [facility] for cardiac cath -NPO Thursday night for cath on Thursday #HTN -c/w metoprolol - monitor BP readings #HLD -c/w statin #hypokalemia -repleted K -repeat BMP for the morning -continue to monitor K #GERD -Protonix 40 mg DAILY #FEN -no standing fluids -monitor lytes; replete PRN -NPO at midnight for stress test tm #Ppx DVT:SQ heparin dispo: transfer to [facility] on Thursday for cardiac cath Visit type - Emergency Visit Emergency Visit: No - New Patient This patient is new to me today: No - Critical Care Critical Care patient: No - Medication Review Med list reviewed for High Risk Meds patients 65 and older: Yes ATTENDING PHYSICIAN STATEMENT I saw and evaluated the patient. I reviewed the resident's note and discussed the case with the resident. I agree with the resident's findings and plan as documented. SUBJECTIVE: OBJECTIVE: ASSESSMENT AND PLAN:
[2020-04-27] MEDS ORDERED: ATORVASTATIN CA 10 MG TABLET (FP) PO SCH (22:00)
[2020-04-27] MEDS: LATANOPROST 0.005% OPHTH SOLN 2.5ML BOTTLE OD SCH (22:00)
[2020-04-28 06:54] LABS: BASO % 0.8 % (0-2.0); EOS % 2.6 % (0-4.5); HEMATOCRIT 36.3 % (32.4-45.2); HEMOGLOBIN 12.3 GM/dL (10.7-15.3); LYMPH % 23.5 % (8-40); MCH 30.1 pg (25.7-33.7); MCHC 33.8 g/dl (32.0-36.0); MEAN CELL VOLUME 89.2 fl (80-96); MEAN PLT VOLUME 8.9 fl (7.5-11.1); MONO % 8.3 % (3.8-10.2); NEUT % 64.8 % (42.8-82.8); PLATELET COUNT 132 K/MM3 (134-434); RBC 4.07 M/mm3 (3.60-5.2); RDW 13.2 % (11.6-15.6); WHITE BLOOD COUNT 6.5 K/mm3 (4.0-10.0)
[2020-04-28 07:23] LABS: BLOOD UREA NITROGEN 30.2 mg/dL (7-18); CALCIUM 8.6 mg/dL (8.5-10.1); POTASSIUM 3.8 mmol/L (3.5-5.1)
[2020-04-28] MEDS: HEPARIN NA (PORCINE) 5,000 UNITS/ML 1ML VIAL SQ SCH ×3 (08:44→21:41)
[2020-04-28] MEDS ORDERED: PT OWN MED DRAWER 7, Y5N ONE (09:44)
[2020-04-28] MEDS: PANTOPRAZOLE 40 MG TABLET PO SCH (09:50)
[2020-04-28] MEDS: metoPROLOL SUCCINATE 25 MG TAB.SR.24H (FP) PO SCH (09:50)
[2020-04-28] MEDS: VITAMIN B COMP W-C 1 EA TABLET (NEPHRO-VITE) PO SCH (09:50)
[2020-04-28] MEDS: CALCIUM 500MG/VIT-D 200 UNITS COMBO TABLET (FP) PO SCH (09:50)
[2020-04-28] MEDS: CHOLECALCIFEROL (VIT D3) 1,000 UNIT (25 MCG) TABLET PO SCH (09:51)
[2020-04-28] MEDS: ASPIRIN COATED 81 MG TABLET.EC PO SCH (09:51)
[2020-04-28] MEDS: BRIMONIDINE TARTRATE 0.2% OPHTHALMIC 5 ML BOTTLE OS SCH ×2 (09:51→21:40)
[2020-04-28] MEDS: DORZOLAMIDE 2% HCL OPHTHALMIC SOLUTION 10 ML BOTTLE OS SCH ×2 (09:51→21:35)
--- NOTE | 2020-04-28 10:19 | PN ---
Physical Exam: SUBJECTIVE: Patient seen and examined at bedside. There were no acute events overnight. This AM she states her chronic stress incontinence has been a bother but has not changed; she is requesting more Depends/adult diapers. She denies FNVD, constipation, chills and dysuria. OBJECTIVE: Vital Signs Period Temp Pulse Resp BP Sys/Oleary Pulse Ox Last 24 Hr 97.5 F-97.9 F 59-76 18-20 116-159/50-71 61-97 GENERAL: The patient is awake, alert, and fully oriented, in no acute distress. HEAD: Normal with no signs of trauma. EYES: PERRL, extraocular movements intact, sclera anicteric, conjunctiva clear. No ptosis. ENT: Ears normal, nares patent, oropharynx clear without exudates, moist mucous membranes. NECK: Trachea midline, full range of motion, supple. LUNGS: Breath sounds equal, clear to auscultation bilaterally, no wheezes, no crackles, no accessory muscle use. HEART: Regular rate and rhythm, S1, S2 without murmur, rub or gallop. ABDOMEN: Soft, nontender, nondistended, normoactive bowel sounds, no guarding, no rebound, no hepatosplenomegaly, no masses. EXTREMITIES: 2+ pulses, warm, well-perfused, no edema. NEUROLOGICAL: Cranial nerves II through XII grossly intact. Normal speech, gait not observed. PSYCH: Normal mood, normal affect. SKIN: Warm, dry, normal turgor, no rashes or lesions noted Laboratory Results - last 24 hr 04/28/20 04/28/20 05:15 05:15 WBC 6.5 RBC 4.07 Hgb 12.3 Hct 36.3 MCV 89.2 MCH 30.1 MCHC 33.8 RDW 13.2 Plt Count 132 L MPV 8.9 Absolute Neuts (auto) 4.2 Neutrophils % 64.8 Lymphocytes % 23.5 D Monocytes % 8.3 Eosinophils % 2.6 Basophils % 0.8 Nucleated RBC % 0 Sodium 140 Potassium 3.8 Chloride 105 Carbon Dioxide 30 Anion Gap 5 L BUN 30.2 H Creatinine 1.0 Est GFR (CKD-EPI)AfAm 58.66 Est GFR (CKD-EPI)NonAf 50.61 Random Glucose 119 H Calcium 8.6 Active Medications Generic Name Dose Route Start Last Admin Trade Name Freq PRN Reason Stop Dose Admin Aspirin 81 mg 04/26/20 10:00 04/28/20 09:51 Ecotrin - PO 81 mg DAILY LUIS ALBERTO Administration Atorvastatin Calcium 10 mg 04/27/20 22:00 04/27/20 21:18 Lipitor - PO 10 mg MoWeFr@2200 LUIS ALBERTO Administration Brimonidine Tartrate 1 drop 04/26/20 00:14 04/28/20 09:51 Alphagan 0.2% - OS 1 drop BID LUIS ALBERTO Administration Calcium Carbonate/Cholecalciferol 2 tab 04/27/20 10:00 04/28/20 09:50 Os-Vahe 500+D - PO 2 tab DAILY LUIS ALBERTO Administration Chlorthalidone 25 mg 04/27/20 10:00 04/27/20 12:57 Hygroton - PO 25 mg MOWEFR@1000 LUIS ALBERTO Administration Cholecalciferol 1,000 unit 04/27/20 10:00 04/28/20 09:51 Vitamin D3 - PO 1,000 unit DAILY LUIS ALBERTO Administration Dorzolamide HCl 1 drop 04/26/20 00:15 04/28/20 09:51 Trusopt 2% OS 1 drop BID LUIS ALBERTO Administration Heparin Sodium (Porcine) 5,000 unit 04/26/20 14:00 04/28/20 08:44 Heparin - SQ 5,000 unit TID LUIS ALBERTO Administration Latanoprost 1 drop 04/26/20 00:14 04/27/20 22:00 Xalatan 0.005% Eye Drops - OD 1 drop HS LUIS ALBERTO Administration Metoprolol Succinate 12.5 mg 04/26/20 10:00 04/28/20 09:50 Toprol Xl - PO 12.5 mg DAILY LUIS ALBERTO Administration Multivit/Ca Carb/B Cmplx/FA/Prenat 1 tablet 04/26/20 16:30 04/28/20 09:50 Nephro-Eula - PO 1 tablet DAILY LUIS ALBERTO Administration Non-Formulary Medication 1 ml 04/26/20 22:00 Netarsudil Mesylate [Rhopressa] OP HS LUIS ALBERTO Pantoprazole Sodium 40 mg 04/26/20 10:00 04/28/20 09:50 Protonix - PO 40 mg DAILY LUIS ALBERTO Administration ASSESSMENT/PLAN: 89 y/o female PMH HTN, HLF, sarcoidosis, anxiety, GERD, OA CAD, [place] s/p LAD stent 2012 presenting with chest pain. Admitted for atypical chest pain. NE ruled out. # Atypical chest pain - NPO Thursday night, 04/29/2020 - Transfer to [facility] for catheterization on Thursday - ASA, Lipitor, Metoprolol # HTN - Metoprolol succinate now 50 mg daily # HLD - Lipitor 20 mg hs #GERD - Protonix 40 mg qd #FEN - PO - Cont. to monitor and replete as approprite - Low na; NPO 04/29/2020 # Ppx - Heparin # Disposition - Telemetry Visit type - Emergency Visit Emergency Visit: No - New Patient This patient is new to me today: Yes Date on this admission: 04/28/20 - Critical Care Critical Care patient: No - Medication Review Med list reviewed for High Risk Meds patients 65 and older: Yes ATTENDING PHYSICIAN STATEMENT I saw and evaluated the patient. I reviewed the resident's note and discussed the case with the resident. I agree with the resident's findings and plan as documented. SUBJECTIVE: OBJECTIVE: ASSESSMENT AND PLAN:
--- NOTE | 2020-04-28 11:22 | PN ---
Progress Note, Physician Chief Complaint: no cp or sob History of Present Illness: 89 yuear-old woman with a PMHx of HTN, hyperlipidemia, CAD, [place] s/p LAD stent 2012, anxiety, GERD, OA presented to ED on 04/25/20 with chest pain. She developed chest pain 15 minutes prior to ED arrival. Patient describes her pain located in the left lower sternal border, as sharp, tender, worse with movement, and that it is more towards the left side. She denies associated SOB, palpitation, diaphoresis, dizziness, syncope or near syncope. NJ ruled out. ECG 04/25/2020 showed sinus rhythm at 70 BPM. LBBB. Regadenoson nuclear stress test 04/27/20 showed moderate size, predominantly fixed defect in the anteroapical wall, c/w prior infarct with mild ruben-infarct ischemia. A separate moderate size, mild to moderate severity stress induced ischemia in the inferoapical wall. TID = 1.28. Gated study revealed septal motion abnormaliy c/w LBBB and inferior wall hypokinesis. LVEF 50%. - Current Medication List Current Medications: Active Medications Aspirin (Ecotrin -) 81 mg PO DAILY [facility] Last Admin: 04/28/20 09:51 Dose: 81 mg Documented by: Atorvastatin Calcium (Lipitor -) 10 mg PO MoWeFr@2200 [facility] Last Admin: 04/27/20 21:18 Dose: 10 mg Documented by: Brimonidine Tartrate (Alphagan 0.2% -) 1 drop OS BID [facility] Last Admin: 04/28/20 09:51 Dose: 1 drop Documented by: Calcium Carbonate/Cholecalciferol (Os-Vahe 500+D -) 2 tab PO DAILY [facility] Last Admin: 04/28/20 09:50 Dose: 2 tab Documented by: Chlorthalidone (Hygroton -) 25 mg PO MOWEFR@1000 [facility] Last Admin: 04/27/20 12:57 Dose: 25 mg Documented by: Cholecalciferol (Vitamin D3 -) 1,000 unit PO DAILY [facility] Last Admin: 04/28/20 09:51 Dose: 1,000 unit Documented by: Dorzolamide HCl (Trusopt 2%) 1 drop OS BID [facility] Last Admin: 04/28/20 09:51 Dose: 1 drop Documented by: Heparin Sodium (Porcine) (Heparin -) 5,000 unit SQ TID [facility] Last Admin: 04/28/20 08:44 Dose: 5,000 unit Documented by: Latanoprost (Xalatan 0.005% Eye Drops -) 1 drop OD HS [facility] Last Admin: 04/27/20 22:00 Dose: 1 drop Documented by: Metoprolol Succinate (Toprol Xl -) 12.5 mg PO DAILY [facility] Last Admin: 04/28/20 09:50 Dose: 12.5 mg Documented by: Multivit/Ca Carb/B Cmplx/FA/Prenat (Nephro-Eula -) 1 tablet PO DAILY [facility] Last Admin: 04/28/20 09:50 Dose: 1 tablet Documented by: Non-Formulary Medication (Netarsudil Mesylate [Rhopressa]) 1 ml OP HS [facility] Pantoprazole Sodium (Protonix -) 40 mg PO DAILY [facility] Last Admin: 04/28/20 09:50 Dose: 40 mg Documented by: - Objective Vital Signs: Vital Signs Temperature 97.5 F L 04/28/20 08:54 Pulse Rate 67 04/28/20 08:54 Respiratory Rate 18 04/28/20 08:54 Blood Pressure 141/58 L 04/28/20 08:54 O2 Sat by Pulse Oximetry (%) 97 04/28/20 09:00 Constitutional: Yes: Well Nourished, No Distress Eyes: Yes: Conjunctiva Clear, EOM Intact HENT: Yes: Normocephalic Neck: Yes: Trachea Midline Cardiovascular: Yes: Regular Rate and Rhythm Respiratory: Yes: CTA Bilaterally Gastrointestinal: Yes: Normal Bowel Sounds, Soft Musculoskeletal: Yes: WNL Extremities: Yes: WNL Edema: No Peripheral Pulses WNL: Yes Labs: CBC, BMP 04/28/20 05:15 04/28/20 05:15 INR, PTT INR 1.06 (0.83-1.09) 04/25/20 21:15 Assessment/Plan 89 yuear-old woman with a PMHx of HTN, hyperlipidemia, CAD, [place] s/p LAD stent 2012, anxiety, GERD, OA presented to ED on 04/25/20 with chest pain. She developed chest pain 15 minutes prior to ED arrival. Patient describes her pain located in the left lower sternal border, as sharp, tender, worse with movement, and that it is more towards the left side. She denies associated SOB, palpitation, diaphoresis, dizziness, syncope or near syncope. NJ ruled out. ECG 04/25/2020 showed sinus rhythm at 70 BPM. LBBB. Regadenoson nuclear stress test 04/27/20 showed moderate size, predominantly fixed defect in the anteroapical wall, c/w prior infarct with mild ruben-infarct ischemia. A separate moderate size, mild to moderate severity stress induced ischemia in the inferoapical wall. TID = 1.28. Gated study revealed septal motion abnormaliy c/w LBBB and inferior wall hypokinesis. LVEF 50%. Atypical chest pain with history of CAD, [place] s/p LAD stent in 2012. [place] ruled out. ECG is uninterpretable for ischemia due to LBBB. Regadenoson nuclear stress test 04/27/20 showed moderate size, predominantly fixed defect in the anteroapical wall with mild ruben-infarct ischemia and a separate moderate size, mild to moderate severity stress induced ischemia in the inferoapical wall. TID = 1.28 Plan is to transfer the patient for cardiac cath with possible PCI to [facility] minilab operator. Please keep the patient NPO after midnight on Thursday. The patient will be transferred to [facility] Thursday morning. Increase metoprolol succinate to 50 mg daily and atorvastatin to 20 mg daily. Continue aspirin. Continue tele.
[2020-04-28 13:03] LABS: ALBUMIN 3.5 g/dl (3.4-5.0); BILIRUBIN,TOTAL 0.6 mg/dL (0.2-1); BLOOD UREA NITROGEN 30.9 mg/dL (7-18); CALCIUM 9.1 mg/dL (8.5-10.1); MAGNESIUM 2.2 mg/dL (1.8-2.4); POTASSIUM 4.2 mmol/L (3.5-5.1); TOT PROT 6.4 g/dl (6.4-8.2)
[2020-04-28] MEDS ORDERED: ATORVASTATIN CA 20 MG TABLET (FP) PO SCH (14:14)
--- NOTE | 2020-04-28 14:16 | PN ---
Teaching Attending Note Name of Resident: Michael Bradley ATTENDING PHYSICIAN STATEMENT I saw and evaluated the patient. I reviewed the resident's note and discussed the case with the resident. I agree with the resident's findings and plan as documented. SUBJECTIVE: no fever ro chills. no cp , no SOB OBJECTIVE: NAD ,awake, alert, cooperative CV: RRR Lungs: CTAB ext : No edema or erythema on legs or arms ASSESSMENT AND PLAN: 89 y/o lady with h/o CAD, [place] s/p LAD, HTN, HLD, GERD, OA. She presented with CP . 1- CP / unstable angina : abnormal stress test - cont ASa, statin ( increase ) , and BB ( increase ) - card cath on Thursday - cont tele monitoring 2- HTN: metoprolol. can add ACEI/ARB tomorrow if needed 3- HLP: cont statin 4- SQ heparin for DVT Px dispo : Transfer to [facility] on Thursday am ASSESSMENT AND PLAN:
[2020-04-28] MEDS: LATANOPROST 0.005% OPHTH SOLN 2.5ML BOTTLE OD SCH (21:38)
[2020-04-29] MEDS: HEPARIN NA (PORCINE) 5,000 UNITS/ML 1ML VIAL SQ SCH ×3 (05:48→21:18)
[2020-04-29 06:42] LABS: HEMOGLOBIN 13.2 GM/dL (10.7-15.3); MCH 30.4 pg (25.7-33.7); MEAN CELL VOLUME 89.5 fl (80-96); MEAN PLT VOLUME 8.9 fl (7.5-11.1); PLATELET COUNT 134 K/MM3 (134-434); RBC 4.35 M/mm3 (3.60-5.2); RDW 13.6 % (11.6-15.6); WHITE BLOOD COUNT 6.3 K/mm3 (4.0-10.0)
[2020-04-29] MEDS: PANTOPRAZOLE 40 MG TABLET PO SCH (09:33)
[2020-04-29] MEDS: DORZOLAMIDE 2% HCL OPHTHALMIC SOLUTION 10 ML BOTTLE OS SCH ×2 (09:33→21:19)
[2020-04-29] MEDS: CALCIUM 500MG/VIT-D 200 UNITS COMBO TABLET (FP) PO SCH (09:33)
[2020-04-29] MEDS: ASPIRIN COATED 81 MG TABLET.EC PO SCH (09:33)
[2020-04-29] MEDS: VITAMIN B COMP W-C 1 EA TABLET (NEPHRO-VITE) PO SCH (09:33)
[2020-04-29] MEDS: BRIMONIDINE TARTRATE 0.2% OPHTHALMIC 5 ML BOTTLE OS SCH ×2 (09:33→21:19)
[2020-04-29] MEDS: CHOLECALCIFEROL (VIT D3) 1,000 UNIT (25 MCG) TABLET PO SCH (09:33)
--- NOTE | 2020-04-29 10:43 | PN ---
Progress Note, Physician Chief Complaint: no cp or sob tele brief nsvt History of Present Illness: 89 yuear-old woman with a PMHx of HTN, hyperlipidemia, CAD, [place] s/p LAD stent 2012, anxiety, GERD, OA presented to ED on 04/25/20 with chest pain. She developed chest pain 15 minutes prior to ED arrival. Patient describes her pain located in the left lower sternal border, as sharp, tender, worse with movement, and that it is more towards the left side. She denies associated SOB, palpitation, diaphoresis, dizziness, syncope or near syncope. IA ruled out. ECG 04/25/2020 showed sinus rhythm at 70 BPM. LBBB. Regadenoson nuclear stress test 04/27/20 showed moderate size, predominantly fixed defect in the anteroapical wall, c/w prior infarct with mild ruben-infarct ischemia. A separate moderate size, mild to moderate severity stress induced ischemia in the inferoapical wall. TID = 1.28. Gated study revealed septal motion abnormaliy c/w LBBB and inferior wall hypokinesis. LVEF 50%. - Current Medication List Current Medications: Active Medications Aspirin (Ecotrin -) 81 mg PO DAILY [facility] Last Admin: 04/29/20 09:33 Dose: 81 mg Documented by: Atorvastatin Calcium (Lipitor -) 20 mg PO MoWeFr@2200 [facility] Brimonidine Tartrate (Alphagan 0.2% -) 1 drop OS BID [facility] Last Admin: 04/29/20 09:33 Dose: 1 drop Documented by: Calcium Carbonate/Cholecalciferol (Os-Vahe 500+D -) 2 tab PO DAILY [facility] Last Admin: 04/29/20 09:33 Dose: 2 tab Documented by: Chlorthalidone (Hygroton -) 25 mg PO MOWEFR@1000 [facility] Last Admin: 04/27/20 12:57 Dose: 25 mg Documented by: Cholecalciferol (Vitamin D3 -) 1,000 unit PO DAILY [facility] Last Admin: 04/29/20 09:33 Dose: 1,000 unit Documented by: Dorzolamide HCl (Trusopt 2%) 1 drop OS BID [facility] Last Admin: 04/29/20 09:33 Dose: 1 drop Documented by: Heparin Sodium (Porcine) (Heparin -) 5,000 unit SQ TID [facility] Last Admin: 04/29/20 05:48 Dose: 5,000 unit Documented by: Latanoprost (Xalatan 0.005% Eye Drops -) 1 drop OD HS [facility] Last Admin: 04/28/20 21:38 Dose: 1 drop Documented by: Metoprolol Succinate (Toprol Xl -) 50 mg PO DAILY [facility] Last Admin: 04/29/20 09:33 Dose: 50 mg Documented by: Multivit/Ca Carb/B Cmplx/FA/Prenat (Nephro-Eula -) 1 tablet PO DAILY [facility] Last Admin: 04/29/20 09:33 Dose: 1 tablet Documented by: Pantoprazole Sodium (Protonix -) 40 mg PO DAILY [facility] Last Admin: 04/29/20 09:33 Dose: 40 mg Documented by: - Objective Vital Signs: Vital Signs Temperature 97.2 F L 04/29/20 05:43 Pulse Rate 61 04/29/20 05:43 Respiratory Rate 18 04/29/20 05:43 Blood Pressure 139/60 04/29/20 05:43 O2 Sat by Pulse Oximetry (%) 98 04/29/20 02:00 Constitutional: Yes: No Distress, Calm Eyes: Yes: Conjunctiva Clear, EOM Intact HENT: Yes: Atraumatic, Normocephalic Neck: Yes: Supple, Trachea Midline Cardiovascular: Yes: Regular Rate and Rhythm, Murmur (2/6 carlee rusb.) Respiratory: Yes: CTA Bilaterally Gastrointestinal: Yes: Normal Bowel Sounds, Soft Musculoskeletal: Yes: WNL Extremities: Yes: WNL Edema: No Labs: CBC, BMP 04/29/20 05:30 04/28/20 12:15 INR, PTT INR 1.06 (0.83-1.09) 04/25/20 21:15 Assessment/Plan 89 yuear-old woman with a PMHx of HTN, hyperlipidemia, CAD, [place] s/p LAD stent 2012, anxiety, GERD, OA presented to ED on 04/25/20 with chest pain. She developed chest pain 15 minutes prior to ED arrival. Patient describes her pain located in the left lower sternal border, as sharp, tender, worse with movement, and that it is more towards the left side. She denies associated SOB, palpitation, diaphoresis, dizziness, syncope or near syncope. [place] ruled out. ECG 04/25/2020 showed sinus rhythm at 70 BPM. LBBB. Regadenoson nuclear stress test 04/27/20 showed moderate size, predominantly fixed defect in the anteroapical wall, c/w prior infarct with mild ruben-infarct ischemia. A separate moderate size, mild to moderate severity stress induced ischemia in the inferoapical wall. TID = 1.28. Gated study revealed septal motion abnormaliy c/w LBBB and inferior wall hypokinesis. LVEF 50%. Atypical chest pain with history of CAD, [place] s/p LAD stent in 2012. [place] ruled out. ECG is uninterpretable for ischemia due to LBBB. Regadenoson nuclear stress test 04/27/20 showed moderate size, predominantly fixed defect in the anteroapical wall with mild ruben-infarct ischemia and a separate moderate size, mild to moderate severity stress induced ischemia in the inferoapical wall. TID = 1.28 Plan is to transfer the patient for cardiac cath with possible PCI to [facility] lab aide. Please keep the patient NPO after midnight on Thursday. The patient will be transferred to [facility] Thursday morning. continue metoprolol succinate 50 mg daily and atorvastatin 20 mg daily. Continue aspirin. Continue tele.
--- NOTE | 2020-04-29 14:05 | PN ---
Progress Note (short form) - Note Progress Note: Subjective: no cp or fever or chills. had pain in her anal area and RN could push hemorrhoids back in . Objective: Vital Signs: Last Vital Signs Temp Pulse Resp BP Pulse Ox 97.7 F 60 20 135/63 95 04/29/20 10:00 04/29/20 10:00 04/29/20 10:00 04/29/20 10:00 04/29/20 10:00 Intake & Output 04/26/20 04/27/20 04/28/20 04/29/20 23:59 23:59 23:59 23:59 Intake Total 970 600 120 Output Total 450 1800 Balance 970 150 -1680 Weight 125 lb Physical Exam: NAD ,awake, alert, cooperative CV: RRR Lungs: CTAB ext : No edema or erythema on legs or arms rectal area with nl hair distribution , small hemorrhoids seen at 2 O'clock . tender, no erythema . no bleeding seen. ASSESSMENT AND PLAN: 89 y/o lady with h/o CAD, [place] s/p LAD, HTN, HLD, GERD, OA. She presented with CP . 1- CP/ unstable angina : abnormal stress test. - cont ASa, statin and BB - card cath on Thursday - cont tele monitoring 2- HTN: metoprolol. 3- HLP: cont statin 4- External hemorrhoids. add prep H . SQ heparin for DVT Px dispo : Transfer to [facility] on Thursday am. NPO after MN Visit type - Emergency Visit Emergency Visit: Yes ED Registration Date: 04/25/20 Care time: The patient presented to the Emergency Department on the above date and was hospitalized for further evaluation of their emergent condition. - New Patient This patient is new to me today: No - Critical Care Critical Care patient: No - Medication Review Med list reviewed for High Risk Meds patients 65 and older: Yes
[2020-04-29] MEDS ORDERED: PHENYLEPHRINE HCL/COCOA BUTTER SUPPOSITORY RC ONE (15:00)
[2020-04-29] MEDS: LATANOPROST 0.005% OPHTH SOLN 2.5ML BOTTLE OD SCH (21:20)
[2020-04-30 05:25] VITALS: BP 139/59; PULSE 67; TEMP 97.8
[2020-04-30] MEDS: HEPARIN NA (PORCINE) 5,000 UNITS/ML 1ML VIAL SQ SCH (05:51)
--- NOTE | 2020-04-30 15:48 | DS ---
Physical Exam: SUBJECTIVE: Patient seen and examined at bedside, no acute events overnight, no new complaints. She denies any acute chest pain, fevers, sob, chills, dysuria. OBJECTIVE: Vital Signs Period Temp Pulse Resp BP Sys/Oleary Pulse Ox Last 24 Hr 97.8 F-98.3 F 61-67 20-20 125-141/47-61 95-98 PHYSICAL EXAM GENERAL: The patient is awake, alert, and fully oriented, in no acute distress. HEAD: Normal with no signs of trauma. EYES: PERRL, extraocular movements intact, sclera anicteric, conjunctiva clear. No ptosis. ENT: Ears normal, nares patent, oropharynx clear without exudates, moist mucous membranes. NECK: Trachea midline, full range of motion, supple. LUNGS: Breath sounds equal, clear to auscultation bilaterally, no wheezes, no crackles, no accessory muscle use. HEART: Regular rate and rhythm, S1, S2 without murmur, rub or gallop. ABDOMEN: Soft, nontender, nondistended, normoactive bowel sounds, no guarding, no rebound, no hepatosplenomegaly, no masses. EXTREMITIES: 2+ pulses, warm, well-perfused, no edema. NEUROLOGICAL: Cranial nerves II through XII grossly intact. Normal speech, gait not observed. PSYCH: Normal mood, normal affect. SKIN: Warm, dry, normal turgor, no rashes or lesions noted LABS HOSPITAL COURSE: Date of Admission:04/25/20 89 Y F with a PMH of HTN, hyperlipidemia, CAD, ME s/p LAD stent 2013, anxiety, GERD, OA presented with chest pain, admitted for atypical chest pain. Monitored in [facility] during the the hospital course. ECG revealed sinus rhythm at 70 BPM, LBBB. Cardiology was consulted. Regadenoson nuclear stress test was performed for further evaluation, which showed a "fixed defect in the anteroapical wall, c/w prior infarct with mild ruben-infarct ischemia, also a separate moderate size, mild to moderate severity stress induced ischemia in the inferoapical wall. TID = 1.28. Gated study revealed septal motion abnormaliy c/w LBBB and inferior wall hypokinesis. LVEF of 50%" Patient scheduled to transfer for cardiac cath with possible PCI to [facility] lab scientist. Patient was clinically stable and is transferred today to [facility] for possible PCI Date of Discharge: 04/30/20 Minutes to complete discharge: 36 Discharge Summary Problems reviewed: Yes Reason For Visit: CHEST PAIN Condition: Stable - Instructions Diet, Activity, Other Instructions: YOUR VISIT: You were admitted to the hospital for chest pain. You were evaluated with a cardiac stress test to evaluate for blood supply to your heart muscles. The test revealed that you may have decreased blood supply to your heart muscles. You may need a procedure to fix the decrease in blood supply to your muscles, you are being transferred to [facility] for higher order of care that is not provided by this hospital. Physical exam, we found a hemorrhoid in your rectum, you will need to follow up with your PCP for further evaluation and treatment. MEDICATIONS: Metoprolol Succinate dose was increased from 25mg to 50mg Atorvastatin Calcium dose was increased from 10 mg to 20 mg Please START taking metoprolol Succinate(Toprol Xl) 50 mg daily, Do NOT take the 25mg. Please START taking Atorvastatin calcium(Lipitor) 20 mg daily, Do NOT take the 10mg. Please START taking Chlorthalidone(Hygroton) 25mg Continue to take all other home medications as prescribed FOLLOW UPS: Please follow up with your registered respiratory technician, Dr. Baptiste, within 1 week after discharge from [facility] for hospital course and further evaluation Please visit your primary care provider, Bolivar Richards, within 2 weeks to follow up with your labwork and hospital visit. ADDITIONAL INSTRUCTIONS: You are being discharged to [facility]. Please call 911 or come directly to the emergency department if you experience recurrence of the symptoms that brought you to the hospital, unusual headache, vision change, shortness of breath, chest pain, numbness, tingling, loss of alertness/awareness, loss of function, unusual bleeding or any alarming symptoms Referrals: Carson Avery MD [Staff Physician] - Bolivar Richards MD [Primary Care Provider] - Disposition: TRANSFER ACUTE CARE/OTHER HOSP - Home Medications Comprehensive Discharge Medication List: Ambulatory Orders Aspirin [Aspirin EC] 81 mg PO DAILY 10/16/18 Pantoprazole Sodium 40 mg PO PRN 10/16/18 Vitamin B Complex [B Complex] 1 tab PO DAILY 10/16/18 Cholecalciferol (Vitamin D3) [Vitamin D3] 1,000 unit PO DAILY 06/22/19 Vit A/Vit C/Vit E/Zinc/Copper [Preservision Areds Softgel] 1 each PO BID 06/22/19 Brimonidine Tartrate [Alphagan 0.2% -] 1 drop OS BID drops 06/24/19 Dorzolamide HCl [Trusopt 2% -] 1 drop OS BID drops 06/24/19 Latanoprost 0.005% Eye Drops [Xalatan 0.005% Eye Drops -] 1 drop OD HS drops 06/24/19 Netarsudil Mesylate [Rhopressa] 1 ml OP HS 04/26/20 Atorvastatin Ca [Lipitor] 20 mg PO MoWeFr@2200 tablet 04/30/20 Calcium 500Mg/Vit-D 200 Units [Os-Vahe 500+D -] 2 tab PO DAILY tab 04/30/20 Chlorthalidone [Hygroton -] 25 mg PO MOWEFR@1000 tablet 04/30/20 Metoprolol Succinate [Toprol XL -] 50 mg PO DAILY tab.sr.24h 04/30/20 Phenyleph/Mineral Oil/Petrolat [Preparation H Ointment] 28 gm RC QID #14 oint.appl 04/30/20 Vitamin B Comp W-C [Nephro-Eula -] 1 tablet PO DAILY tablet 04/30/20 This patient is new to me today: No Emergency Visit: Yes ED Registration Date: 04/25/20 Care time: The patient presented to the Emergency Department on the above date and was hospitalized for further evaluation of their emergent condition. Critical Care patient: No - Discharge Referral Referred to [facility] Med P.C.: No ATTENDING PHYSICIAN STATEMENT I saw and evaluated the patient. I reviewed the resident's note and discussed the case with the resident. I agree with the resident's findings and plan as documented. SUBJECTIVE: OBJECTIVE: ASSESSMENT AND PLAN:
--- NOTE | 2020-04-30 18:48 | HOSP ---
Subjective - Review of Symptoms Events since last encounter: went to see patient this am at around 8:30 , she was on the stretcher leaving to [facility] for cath. Physical Examination Vital Signs: Vital Signs Temperature 97.8 F 04/30/20 05:23 Pulse Rate 67 04/30/20 05:23 Respiratory Rate 20 04/30/20 05:23 Blood Pressure 139/59 L 04/30/20 05:23 O2 Sat by Pulse Oximetry (%) 98 04/30/20 08:27 Labs: CBC, BMP 04/29/20 05:30 04/28/20 12:15
== END 2020-04-30 08:40 | disposition short-term general hospital (02) ==
LOC: JER 19:37 → JERBED 22:43 → J4W 04-26 18:33
PROVIDERS: ADMIT Internal Medicine; ATTEND Internal Medicine
PROC: 3E033GC Introduction of Other Therapeutic Substance into Peripheral Vein, Percutaneous Approach (ICD-10-PCS; principal; 2020-04-25)
PROC: 3E013GC Introduction of Other Therapeutic Substance into Subcutaneous Tissue, Percutaneous Approach (ICD-10-PCS; 2020-04-25)
DX: R07.89 Other chest pain (principal); I25.89 Other forms of chronic ischemic heart disease; I10 Essential (primary) hypertension; E78.5 Hyperlipidemia, unspecified; I25.10 Atherosclerotic heart disease of native coronary artery without angina pectoris; I25.2 Old myocardial infarction; F41.9 Anxiety disorder, unspecified; M19.90 Unspecified osteoarthritis, unspecified site; K21.9 Gastro-esophageal reflux disease without esophagitis; E87.6 Hypokalemia; R94.39 Abnormal result of other cardiovascular function study; Z11.59 Encounter for screening for other viral diseases; Z79.82 Long term (current) use of aspirin; Z88.5 Allergy status to narcotic agent; Z95.5 Presence of coronary angioplasty implant and graft
CPT/HCPCS: 36415; 71046-TC-FY; 78452-TC; 80048; 80053; 82550; 83735; 84100; 84443; 84484; 85025; 85027; 85610; 85730; 93005; 93010; 93017; 96372; 96374; 97116-GP; 97161-GP; 99285-25; A9502; G0378; J1644; J2785; U0003